=== PATIENT | male | born 1945 | race Caucasian/White ===

== ENCOUNTER 2022-11-26 12:01 | Inpatient (IN) ==
--- NOTE | 2022-11-03 15:58 | PAT Medication Instructions ---
Medication Instructions Date of Service November 03, 2022 Home Medications atorvastatin 40 mg tablet (Lipitor) 40 mg PO HS insulin human U-100 NPH-regulr 70-30 mix 100 unit/mL subcutaneous susp (Humulin 70/30 U-100 Insulin) 1 sliding scale dose subcut USEASDIRECTD losartan 25 mg tablet 25 mg PO QAM metformin 500 mg tablet,extended release 24 hr 500 mg PO BID metoprolol tartrate 25 mg tablet 25 mg PO BID nitroglycerin 0.4 mg sublingual tablet 0.4 mg sublingual UD omeprazole 20 mg capsule,delayed release 20 mg PO DAILY PRN finasteride 5 mg tablet 5 mg PO QAM multivitamin 1 tab PO QAM Continue as directed nitroglycerin 0.4 mg sublingual tablet 0.4 mg sublingual UD DO NOT take the morning of surgery losartan 25 mg tablet 25 mg PO QAM metformin 500 mg tablet,extended release 24 hr 500 mg PO BID multivitamin 1 tab PO QAM Take morning of surgery With a small sip of water, OTHERWISE NOTHING TO EAT OR DRINK AFTER MIDNIGHT: metoprolol tartrate 25 mg tablet 25 mg PO BID omeprazole 20 mg capsule,delayed release 20 mg PO DAILY PRN(if needed) finasteride 5 mg tablet 5 mg PO QAM Take evening before surgery atorvastatin 40 mg tablet (Lipitor) 40 mg PO HS metformin 500 mg tablet,extended release 24 hr 500 mg PO BID metoprolol tartrate 25 mg tablet 25 mg PO BID Insulin Dependent Diabetic Patients * Test your blood sugar the morning of surgery * If Blood Sugar is GREATER THAN 150, take HALF of your regular dose of: insulin human U-100 NPH-regulr 70-30 mix 100 unit/mL subcutaneous susp (Humulin 70/30 U-100 Insulin) 1 sliding scale dose subcut USEASDIRECTD. * If Blood Sugar is LESS THAN 150, DO NOT TAKE ANY: insulin human U-100 NPH- regulr 70-30 mix 100 unit/mL subcutaneous susp (Humulin 70/30 U-100 Insulin) 1 sliding scale dose subcut USEASDIRECTD. Other Notes If you have any questions please call us at [phone] or [phone] or [phone] or [phone]
--- NOTE | 2022-11-07 08:44 | Anesthesiology Consultation ---
Date of Service November 07, 2022 Assessment & Plan (1) Encounter for pre-operative examination: - COVID screening: Per assessment on 11/07: No known COVID-19 positive contacts or current COVID-19 related symptoms. Travel screen negative. Patient vaccinated. At surgeon discretion if preop Covid testing being done. - Check BSG AM DOS - Patient acceptable risk for surgery pending surgeon-ordered cardiology preop evaluation (S, appt 11/12). Chart Review Chart Review: Patient seen in Pre Admission Testing Teaching & Discussion Pre-Anesthesia Teaching/Discussion Notes: Instructed NPO after midnight before surgery,except medications with 15 cc of water. Medication instructions provided according to the PAT guidelines. History Surgery Operation Date: 11/26/22 07:45 Proposed Procedures p L5-S1 Decompression and Fusion, Spinal Cord Monitoring - Uche Porras DO Height/Weight Height: 5 ft 10.5 in Weight: 84.4 kg Allergies Allergy/AdvReac Type Severity Reaction Status Date / Time No Known Allergies Allergy U Verified 11/03/22 15:04 Medications Home Medications Medication Instructions Recorded Confirmed Last Taken atorvastatin 40 mg tablet (Lipitor) 40 mg PO HS 11/11/18 11/03/22 07/07/21 insulin human U-100 NPH-regulr 1 sliding scale dose subcut 07/08/21 11/03/22 07/08/21 70-30 mix 100 unit/mL subcutaneous USEASDIRECTD susp (Humulin 70/30 U-100 Insulin) losartan 25 mg tablet 25 mg PO QAM 07/08/21 11/03/22 07/08/21 metformin 500 mg tablet,extended 500 mg PO BID 07/08/21 11/03/22 07/08/21 release 24 hr metoprolol tartrate 25 mg tablet 25 mg PO BID 07/08/21 11/03/22 07/08/21 nitroglycerin 0.4 mg sublingual 0.4 mg sublingual UD 07/08/21 11/03/22 Unknown tablet omeprazole 20 mg capsule,delayed 20 mg PO DAILY PRN Acid Reflux 07/08/21 11/03/22 07/08/21 release finasteride 5 mg tablet 5 mg PO QAM 11/03/22 11/03/22 Unknown multivitamin 1 tab PO QAM 11/03/22 11/03/22 Unknown Past Medical History Medical History (Updated 11/07/22 @ 08:44 by Carmen Castle) Arthritis BPH (benign prostatic hyperplasia) CAD (coronary artery disease) CABG x3 (2018) Diabetes mellitus, type 2 Dyslipidemia GERD (gastroesophageal reflux disease) HTN (hypertension) Mild aortic stenosis JOAN 1.3cm2. MG 12.3mmhg per 12/2021 echo Peripheral neuropathy Exercise / Class Metabolic Activity III < 4 Walking/Shop/Light housework Past Family History Family History Mother CHF (congestive heart failure) Other No family history of adverse response to anesthesia Past Surgical History Surgical History History of cardiac cath 2018 > no stents History of colonoscopy History of coronary artery bypass graft CABG x3 (2018) History of ERCP History of repair of rotator cuff Left + biceps tendon repair Hx of cholecystectomy [place] teeth removed Past Anesthesia History No Hx of Anesthesia Complications and No Family Hx of Anesthesia Complications History of PONV No Hx of PONV and No Hx of Motion Sickness Social History Smoking Status: Never smoker Do You Dip or Chew Tobacco: No (Quit 30+ years ago) Hx Alcohol Use: Yes Alcohol type: beer alcohol intake frequency: a few times a week substance use type: does not use Review of Systems Patient denies chest pain, shortness of breath, dyspnea on exertion, fever, chills, cough, wheezing, palpitations. Physical Exam Vital Signs VITALS BP 99/66 (per pt, chronic low-normal BP readings. Pt will be seeing cardio for preop evaluation prior to surgery) P 67 TEMP 97.7 SP02 95%RA RESP 16 PHYSICAL Full cervical extension range of motion. Full TMJ range of motion. TMD 3 finger breaths Mallampati Score 3 Dentition: intact, several caps/crown Lungs: clear throughout to auscultation Cardiac: regular rate and rhythm, faint systolic murmur Spine: normal Carotid arteries: negative bruit Extremities: no edema Lab Results Anesthesia Preop Results Results Anesthesia Widget: WBC 8.94 K/ul (4.8-10.8) 11/07/22 Hgb 17.1 g/dl (14.0-18.0) 11/07/22 Hct 50.2 % (40.1-51.0) 11/07/22 Plt 148 K/uL (130-400) 11/07/22 Na 137 mmol/L (136-145) 11/07/22 K 3.8 mmol/L (3.5-5.1) 11/07/22 Cl 103 mmol/L (98-107) 11/07/22 CO2 22 mmol/L (21-32) 11/07/22 BUN 21 mg/dl (6-23) 11/07/22 Creat 1.04 mg/dl (0.6-1.4) 11/07/22 Glucose Level 217 mg/dl (70-99(Fasting)) H 11/07/22 PT 12.4 Seconds (9.0-12.0) H 11/07/22 PTT 28.8 Seconds (21.0-31.0) 11/07/22 INR 1.2 (0.9-1.1) H 11/07/22 HA1c 6.9 % (4.5-5.6) H 11/07/22 Urine Color Yellow 11/07/22 Urine Appearance Clear (Clear) 11/07/22 Urine pH 6.0 (4.5-7.5) 11/07/22 Urine Specific [place] 1.015 (1.000-1.030) 11/07/22 Urine Protein 2+ (Negative) H 11/07/22 Urine Glucose (UA) Negative (Negative) 11/07/22 Urine Ketones Negative (Negative) 11/07/22 Urine Blood Negative (Negative) 11/07/22 Urine Nitrite Negative (Negative) 11/07/22 Urine Bilirubin Negative (Negative) 11/07/22 Urine Urobilinogen Negative (Negative) 11/07/22 Urine Leukocyte Esterase Negative (Negative) 11/07/22 Urine WBC (Auto) 1-5 /hpf (0-5) 11/07/22 Urine RBC (Auto) 5-10 /hpf (0-4) H 11/07/22 Urine Hyaline Casts (Auto) 1-5 /lpf (0-5) 11/07/22 Urine Epithelial Cells (Auto) 5-10 /lpf (0-5) H 11/07/22 Urine Bacteria (Auto) Negative (Negative) 11/07/22 Blood Type O Negative 11/07/22 Antibody Screen NEGATIVE 11/07/22 Testing Electrocardiogram Date: 01/23/22 Normal sinus rhythm at 77 bpm. RBBB. LAFB. Bifascicular block. LVH with secondary repolarization abnormality. Anterior septal infarct (cited on or before 11/07/2019). Bifascicular block chronicnoted on 07/08/2021 EKG. Echo done 12/2021. Chest X-Ray Date: 11/07/22 FINDINGS: Cardiac mediastinal and hilar silhouettes are unchanged. Prior median sternotomy with suggested CABG. No pneumothorax, pleural effusion, airspace consolidation or overt pulmonary edema. Degenerative changes of the shoulders and spine. Cholecystectomy. Chronic L1 compression deformity. Smoothly corticated ossification projects over the mid left scapula. IMPRESSION: No acute process. Echocardiogram Date: 01/15/22 LVEF 56%. Left ventricular wall motion is normal. Moderately increased concentric LV wall thickness. Grade 1 diastolic dysfunction. Mild LAE. Mild aortic stenosis (JOAN 1.3cm2. MG 12.3mmhg). Mild mitral annular calcification. Compared to previous study 02/20/2021, aortic valve stenosis indices appear stable. Cardiac Catheterization Date: 11/12/18 Summary of Findings Severe multivessel CAD 50% distal Left main 99% subtotal mid LAD 60% ostial Lcx 70% mid-distal Lcx 80% distal Lcx 60% mid OM1 80% ostial RCA with vasospasm 70% distal RCA 90% ostial RPDA *Subsequent CABG performed* COVID-19 Risk Screen Screening Information COVID-19 Screen Date: 11/07/22 Exposure 21 Days Family/Household +COVID Last 21 Days: No Exposure 10 Days Any COVID Exposure Last 10 Days: No Symptoms Last 10 Days Experienced COVID Sx Last 10 Days: No + COVID 0-90 Days COVID + in Last 0-90 Days: No
[~2022-11-26 12:01] MED LIST: ACETAMINOPHEN 500 MG TAB PO SCH; CeleBREX 200 MG CAP PO SCH; GABAPENTIN 300 MG CAP PO SCH; LR 15ML/HR IV SCH; ceFAZolin 2000MG 2,000 MG/15 ML SYR IV SCH
[2022-11-26] MEDS ORDERED: PROPOFOL IV EMULSION 10 MG/ML 20 ML VIAL IV ONE (13:20)
[2022-11-26] MEDS ORDERED: DEXAMETHASONE SOD INJ 4 MG/ML VIAL ONE (13:20)
[2022-11-26] MEDS ORDERED: ROCURONIUM BROMIDE 10 MG/ML 5 ML VIAL IV ONE (13:20)
[2022-11-26] MEDS ORDERED: MIDAZOLAM HCL 1 MG/ML 2ML VIAL ONE (13:20)
[2022-11-26] MEDS ORDERED: ONDANSETRON INJ 2 MG/ML 2 ML VIAL ONE (13:20)
[2022-11-26] MEDS ORDERED: LIDOCAINE 2% MPF LOCAL 5 ML VIAL INFIL ONE (13:20)
[2022-11-26] MEDS ORDERED: fentaNYL citrate 100 MCG/2 ML VIAL ONE (13:21)
--- NOTE | 2022-11-26 13:35 | History & Physical Report ---
Date of Service November 26, 2022 Assessment & Plan (1) Neurogenic claudication due to lumbar spinal stenosis: Plan: L5-S1 decompression and fusion History of Present Illness Chief Complaint: Back and leg pain Primary Care Provider: Edwin Alfonso MD This is a 77-year-old male who presents with chronic persistent back and leg pain. Failed extensive course of nonoperative care is here for surgical intervention. Allergies Allergy/AdvReac Type Severity Reaction Status Date / Time No Known Allergies Allergy U Verified 11/03/22 15:04 Home Medications Medication Instructions Recorded Confirmed Type atorvastatin 40 mg tablet (Lipitor) 40 mg PO HS 11/11/18 11/26/22 History insulin human U-100 NPH-regulr 1 sliding scale dose subcut 07/08/21 11/26/22 History 70-30 mix 100 unit/mL subcutaneous USEASDIRECTD susp (Humulin 70/30 U-100 Insulin) losartan 25 mg tablet 25 mg PO QAM 07/08/21 11/26/22 History metformin 500 mg tablet,extended 500 mg PO BID 07/08/21 11/26/22 History release 24 hr metoprolol tartrate 25 mg tablet 25 mg PO BID 07/08/21 11/26/22 History nitroglycerin 0.4 mg sublingual 0.4 mg sublingual UD 07/08/21 11/03/22 History tablet omeprazole 20 mg capsule,delayed 20 mg PO DAILY PRN Acid Reflux 07/08/21 11/26/22 History release finasteride 5 mg tablet 5 mg PO QAM 11/03/22 11/26/22 History multivitamin 1 tab PO QAM 11/03/22 11/26/22 History Past Med/Surg History Medical History (Updated 11/26/22 @ 13:35 by Uche Porras DO) Arthritis BPH (benign prostatic hyperplasia) CAD (coronary artery disease) CABG x3 (2017) Diabetes mellitus, type 2 Dyslipidemia GERD (gastroesophageal reflux disease) HTN (hypertension) Mild aortic stenosis JOAN 1.3cm2. MG 12.3mmhg per 12/2021 echo Peripheral neuropathy Surgical History History of cardiac cath 2018 > no stents History of colonoscopy History of coronary artery bypass graft CABG x3 (2018) History of ERCP History of repair of rotator cuff Left + biceps tendon repair Hx of cholecystectomy [place] teeth removed Family History Mother CHF (congestive heart failure) Other No family history of adverse response to anesthesia Social History Smoking Status: Never smoker Second Hand Exposure: Yes (IN THE PAST); Do You Dip or Chew Tobacco: No (Quit 30+ years ago); Hx Alcohol Use: Yes Alcohol type: beer Preferred Language: Dutch Communication Ability: Effective [employer] Department Supervisor Required: No Beliefs That Will Affect Care: None Current Living Situation: Alone Feels Safe at Home: Yes Safety Concerns: Feels Safe At This Time Assistive Devices: Brace/Splint/Immobilizer and Glasses Physical Exam Physical Exam: Patient is alert and oriented Heart regular rhythm Lungs clear Results & Data Results & Data ([facility]) Vital Signs (Past 12 Hours) Vital Signs Temp Pulse Resp BP Pulse Ox O2 Del Method 11/26/22 12:25 36.7 C 54 L 20 178/88 H 94 Room Air
--- NOTE | 2022-11-26 13:35 | History & Physical Bridge Note ---
Date of Service November 26, 2022 History & Physical Bridge Note I have examined the patient, reviewed the History & Physical and in the interval since the performance of the History & Physical I have noted the following changes of clinical significance: no changes noted
[2022-11-26] MEDS ORDERED: ceFAZolin 330 MG/ML 1 GM VIAL ONE (13:51)
[2022-11-26] MEDS ORDERED: BUPIVACAINE/EPINEPHRINE 0.25% 1:200,000 30 ML VIAL ONE (13:51)
[2022-11-26] MEDS ORDERED: ePHEDrine sulfate 50 MG/ML AMP IV PRN (14:01)
[2022-11-26] MEDS ORDERED: ATROPINE SULFATE 0.1 MG/ML 10ML SYR IV PRN (14:01)
[2022-11-26] MEDS ORDERED: fentaNYL citrate 100 MCG/2 ML VIAL IV PRN (14:01)
[2022-11-26] MEDS ORDERED: ONDANSETRON INJ 2 MG/ML 2 ML VIAL IV PRN ×2 (14:01→18:22)
[2022-11-26] MEDS ORDERED: PROMETHAZINE HCL 6.25 MG in SODIUM CHLORIDE 0.9% 50 ML IV PRN (14:01)
[2022-11-26] MEDS ORDERED: FLOSEAL HEMOSTATIC MATRIX 10ML TOP ONE (14:44)
[2022-11-26] MEDS ORDERED: SUGAMMADEX SODIUM 200 MG/2 ML VIAL IV ONE (15:24)
--- NOTE | 2022-11-26 16:12 | Operative Report ---
Post Operative Report Pre & Post Diagnosis Operation Date: 11/26/22 07:00 Pre-Op Diagnosis: Spinal Stenosis, Lumbar Region with Neurogenic Claudication Extraforaminal disc herniation L5-S1 on the right Post-Op Diagnosis: Same I identified the patient and participated in the time-out.: Yes Procedure Operation Date: 11/26/22 07:00 Actual Procedures #1 lumbar decompression bilateral facetectomies and foraminotomies L4-L5 L5-S1. #2 posterior spinal fusion L5-S1. #3 placement posterior instrumentation L5-S1. #4 interbody fusion L5-S1. #5 placement of Spira 14 x 26 mm L5-S1. #6 placement locally harvested morselized autograft in the posterior gutters. #7 placement of I factor combined with V toss interbody space and posterior gutters. Surgeon Uche Porras, DO Business Project Analyst Mariza Chance Estimated Blood Loss 300 Findings Consistent with Post-Op Diagnosis Specimens None Indications This is a 77-year-old male who presents with above-mentioned diagnosis and failing since course of nonoperative care is here for surgical invention. Description of Procedure Patient was met with identified informed consent obtained. Patient was then taken to the operative suite underwent a patient placed in a prone position on the Caio table on top Edison frame. All bony prominences well-padded eyes inspected to ensure no external pressure placed upon the. This point the lumbar spine was prepped and draped in normal sterile fashion. Sharp dissection with the assistance of Bovie cautery was performed down to and exposing the lamina and transverse processes of L5 and the sacral ala bilaterally. From a caudal to cephalad fashion complete laminectomy L5 partial laminectomy of L4 was performed including bilateral medial facetectomies and foraminotomies addressing severe spinal stenosis. I did perform a complete facetectomy of L5-S1 on the right to adequately decompress the foraminal extraforaminal disc herniation that was identified and removed. Pedicle screws then placed in L5 and S1 levels bilaterally with assistance of fluoroscopy and properly sized delmis placed. By way of a transit foraminal approach and right complete discectomy performed endplates curetted to subcortical bleeding bone and a 14 x 26 mm Spira cage filled I factor tapped in position. The rods were then locked into final position bilaterally. The transverse processes of L5 and the sacral ala burred to subcortical bleeding bone. I factor model V toss and locally harvested morselized autograft was placed in the posterior gutters. 15 round KAREN drain inserted. The incision was then closed with 1 Vicryl the fascia 2-0 Vicryl subcutaneously and 4 Monocryl for final skin closure. Steri-Strips dressings placed. Patient waken taken to PACU stable condition. Please note spinal cord monitoring was utilized at the procedure no changes noted. I attest to the content of the Intraoperative Record and any orders documented therein. Any exceptions are noted below.
--- NOTE | 2022-11-26 16:20 | Fluoroscopy Report ---
FL lumbar spine 2-3V HISTORY: 77 years-old Male L5-S1 DECOMP/FUSION COMPARISON: Lumbar spine MRI 01/26/2014 TECHNIQUE: 2 spot fluoroscopic images of the lumbar spine were obtained utilizing 20.9 seconds fluoro scopy time FINDINGS: Discectomy with posterior interbody delmis and screw fusion hardware at L5-S1. The hardware appears inta ct. Spondylitic spurring with intervertebral disc space narrowing. No unexpected foreign body identif ied. IMPRESSION: Fluoroscopic assistance as above. ACT 112: Negative or not required by law. The above report was generated using voice recognition software. It may contain grammatical, syntax o r spelling errors. Electronically signed by: Frandy Mcmanus M.D. 11/26/2022 4:19 PM
--- NOTE | 2022-11-26 17:11 | Cardiology Consultation ---
Date of Consultation November 26, 2022 Assessment & Plan (1) Heart block AV second degree: (2) Bifascicular block: (3) CAD (coronary artery disease), [place] coronary artery: (4) S/P CABG x 3: Plan 77-year-old patient presents for elective spinal surgery. Transient bradycardia with 2-1 AV block recorded during induction. Currently sinus rhythm with bifascicular block per ECG. Recommend atropine to bedside. Transcutaneous pacer pads in place. Hold beta-stefania therapy. Continue telemetry monitoring during hospitalization. Consideration for electrophysiology consultation pending clinical course and review of telemetry monitoring. History of Present Illness Reason for Consultation: Bradycardia, 2-1 AV block Requesting Physician: Dr.. Tate Geronimo Attending Physician: Uche Porras DO History of Present Illness 77-year-old patient seen and examined at the bedside in PACU. Spinal surgery performed earlier today. I was contacted by the anesthesiologist regarding bradycardia. During induction, patient became bradycardic with transient 2-1 AV block. He was treated with Robinul, and ephedrine. Bradycardia occurred during induction as well as early on during his operation. When coming out of anesthesia he experienced second episode of bradycardia. Rhythm strips available demonstrate transient 2-1 AV block. There are no rhythm strips available postoperatively. Currently he is sinus rhythm on telemetry. Repeat ECG demonstrating sinus rhythm, right bundle branch block, left anterior fascicular block. No changes when compared to prior ECG in the [facility] record dated 11/12/2022. Cardiovascular history includes multivessel coronary artery disease status post coronary artery bypass grafting x3 (11/17/18) with GARBER-LAD, SVG-OM, SVG-PDA and EVH, dyslipidemia, mild aortic valve stenosis, moderate right sided carotid vascular disease, and HTN. Patient resting comfortably in PACU. Denies lightheadedness, dizziness, or chest discomfort. Notes mild dyspnea on exertion over the past few weeks. No orthopnea, PND, or lower extremity edema. Denies syncope or near syncope. Allergies Allergy/AdvReac Type Severity Reaction Status Date / Time No Known Allergies Allergy U Verified 11/03/22 15:04 Home Medications Medication Instructions Recorded Confirmed Type atorvastatin 40 mg tablet (Lipitor) 40 mg PO HS 11/11/18 11/26/22 History insulin human U-100 NPH-regulr 1 sliding scale dose subcut 07/08/21 11/26/22 History 70-30 mix 100 unit/mL subcutaneous USEASDIRECTD susp (Humulin 70/30 U-100 Insulin) losartan 25 mg tablet 25 mg PO QAM 07/08/21 11/26/22 History metformin 500 mg tablet,extended 500 mg PO BID 07/08/21 11/26/22 History release 24 hr metoprolol tartrate 25 mg tablet 25 mg PO BID 07/08/21 11/26/22 History nitroglycerin 0.4 mg sublingual 0.4 mg sublingual UD 07/08/21 11/03/22 History tablet omeprazole 20 mg capsule,delayed 20 mg PO DAILY PRN Acid Reflux 07/08/21 11/26/22 History release finasteride 5 mg tablet 5 mg PO QAM 11/03/22 11/26/22 History multivitamin 1 tab PO QAM 11/03/22 11/26/22 History Patient History Medical History Arthritis BPH (benign prostatic hyperplasia) CAD (coronary artery disease) CABG x3 (2018) Diabetes mellitus, type 2 Dyslipidemia GERD (gastroesophageal reflux disease) HTN (hypertension) Mild aortic stenosis JOAN 1.3cm2. MG 12.3mmhg per 12/2021 echo Peripheral neuropathy Surgical History History of cardiac cath 2018 > no stents History of colonoscopy History of coronary artery bypass graft CABG x3 (2018) History of ERCP History of repair of rotator cuff Left + biceps tendon repair Hx of cholecystectomy [place] teeth removed Family History Mother CHF (congestive heart failure) Other No family history of adverse response to anesthesia Social History Smoking Status: Never smoker Second Hand Exposure: Yes (IN THE PAST); Do You Dip or Chew Tobacco: No (Quit 30+ years ago); Hx Alcohol Use: Yes Alcohol type: beer Hx Substance Use: No Preferred Language: Lao Communication Ability: Effective Personal Consultant Required: No Beliefs That Will Affect Care: None Current Living Situation: Alone Other Information That Helps Us Care for You: No Feels Safe at Home: Yes Safety Concerns: Feels Safe At This Time Assistive Devices: Glasses Review of Systems Review of Systems: All systems reviewed & are unremarkable except as noted in Subjective Physical Exam Constitutional: well developed and well nourished; no acute distress Respiratory: + respiratory distress; no labored breathing and no retractions Auscultation: no crackles, no rales, no rhonchi and no wheezes Cardiovascular: Rate/Rhythm: regular rate and regular rhythm Heart Sounds: normal S1, normal S2 and + murmur (2/6 systolic ejection murmur heard best at the right second intercostal spa) Extremities: no edema Gastrointestinal (Abdomen): Inspection/Auscultation: normal bowel sounds; abdomen not distended Percussion/Palpation: abdomen soft; abdomen nontender, no guarding and abdomen not rigid Results & Data ([facility]) Vital Signs (Past 12 Hours) Vital Signs Temp Pulse Resp BP Pulse Ox O2 Del Method 11/26/22 12:25 36.7 C 54 L 20 178/88 H 94 Room Air Diagnostic Findings 2D echocardiogram report 01/15/2022: 2D echocardiogram report summary January 15, 2022: The left ventricular cavity size is normal. The LV wall thickness is moderately increased (concentric). The left ventricular wall motion is normal. Calculated LV ejection Fraction = 56% (bi-plane method of discs). The left ventricular diastolic function is mildly abnormal (grade I). The left atrium is mildly enlarged (35-41 ml/m^2). The aortic valve has three leaflets. The aortic valve is moderately calcified. The aortic valve opening is mildly reduced. Mild aortic valve stenosis is present. There is mild mitral annular calcification. The mitral valve leaflets are mildly calcified. Compared to previous study dated 02/20/2021, aortic valve stenosis indices appear stable.
--- NOTE | 2022-11-26 17:32 | Anesthesiology Progress Note ---
Date of Service November 26, 2022 Anesthesia Post Procedure Vital Signs Vital Signs: Temp Pulse Pulse Resp BP Pulse Ox O2 Del Method 11/26/22 17:20 61 14 136/62 96 Nasal Cannula 11/26/22 17:00 63 18 117/64 96 Oxymask 11/26/22 17:10 63 22 134/57 L 93 Nasal Cannula 11/26/22 16:50 72 22 141/69 H 95 Oxymask 11/26/22 16:40 60 17 108/90 94 Oxymask 11/26/22 16:33 36.1 C L 56 L 21 144/75 H 96 Oxymask 11/26/22 12:25 36.7 C 54 L 20 178/88 H 94 Room Air O2 Flow Rate 11/26/22 17:20 2 11/26/22 17:00 6 11/26/22 17:10 2 11/26/22 16:50 6 11/26/22 16:40 6 11/26/22 16:33 6 11/26/22 12:25 Pain Intensity Bilateral Back: Pain Intensity: 6 Transfer of Care Handoff Completed per policy Notes Mental Status: alert / awake / arousable and participated in evaluation Patient Amnestic to Procedure: Yes Nausea / Vomiting: adequately controlled Pain: adequately controlled Airway Patency, RR, SpO2: stable & adequate BP & HR: see Notes below Hydration State: stable & adequate Anesthetic Complications: see Notes below and Pt Satisfied with anesthetic care Notes: See attending anesthesiologist's note for full details. Patient doing well and plan to go to PCU for observation given the rhythm changes noted during procedure. Cardiology following patient and appreciate their excellent care of him.
[2022-11-26] MEDS ORDERED: DO NOT ADMINISTER PNEUMOCOCCAL VACCINE PRN (18:22)
[2022-11-26] MEDS ORDERED: bisacodyL 10 MG SUPP PR PRN (18:22)
[2022-11-26] MEDS ORDERED: METOCLOPRAMIDE HCL INJ 5 MG/ML 2 ML VIAL IV PRN (18:22)
[2022-11-26] MEDS ORDERED: diphenhydrAMINE Capsule 25 MG CAP PO PRN (18:22)
[2022-11-26] MEDS ORDERED: traMADol HCL 50 MG TABLET PO PRN (18:22)
[2022-11-26] MEDS ORDERED: PHARMACY GLYCEMIC MGMT CONSULT PRN (18:22)
[2022-11-26] MEDS ORDERED: NALOXONE HCL 0.4 MG/1 ML VIAL/CARP IV PRN (18:22)
[2022-11-26] MEDS ORDERED: FAMOTIDINE 20 MG TAB PO PRN (18:22)
[2022-11-26] MEDS ORDERED: LORazepam 0.5 MG TAB PO PRN (18:22)
[2022-11-26] MEDS ORDERED: DO NOT ADMINISTER FLU VACCINE PRN (18:22)
[2022-11-26] MEDS ORDERED: HYDROmorphone INJ 0.5 MG/0.5 ML SYR IV PRN (18:22)
[2022-11-26] MEDS ORDERED: hydrOXYzine HCl 25 MG TAB PO PRN (18:22)
[2022-11-26] MEDS ORDERED: LORazepam 2 MG/1 ML VIAL IV PRN (18:22)
[2022-11-26] MEDS ORDERED: ALUMINUM/MAGNESIUM SUSP 30 ML UDC PO PRN (18:22)
[2022-11-26] MEDS ORDERED: PROMETHAZINE HCL 12.5 MG in SODIUM CHLORIDE 0.9% 50 ML IV PRN (18:22)
[2022-11-26] MEDS ORDERED: HYDROmorphone INJ 1 MG/ML SYRINGE IV PRN (18:22)
[2022-11-26] MEDS ORDERED: MAGNESIUM HYDROXIDE SUSP 30 ML UDC PO PRN (18:22)
[2022-11-26] MEDS ORDERED: ONDANSETRON 4 MG OD TAB PO PRN (18:22)
[2022-11-26] MEDS ORDERED: NITROGLYCERIN SL 0.4 MG/TAB TAB SL SCH (18:22)
[2022-11-26] MEDS ORDERED: SOD PHOSPHATE/SOD BIPHOSPHATE ENEMA 132 ML BTL PR PRN (18:22)
[2022-11-26] MEDS ORDERED: PANTOprazole 40 MG TAB PO PRN (18:40)
[2022-11-26 19:42] LABS: BUN Creatinine Ratio 18.8 (10-20); Calcium 8.4 mg/dl (8.5-10.1); Creatinine Clr Calc Pharmacy 57.9 ml/min; Est GFR (African American) 73.6 ml/min; Est GFR (Non-African American) 63.5 ml/min; Potassium 3.9 mmol/L (3.5-5.1)
[2022-11-26] MEDS ORDERED: DEXTROSE 50% 50 ML SYRINGE IV PRN (19:45)
[2022-11-26] MEDS ORDERED: GLUCAGON FOR INJ 1 MG VIAL IM PRN (19:45)
[2022-11-26] MEDS ORDERED: GLUCOSE 40% GEL 15 GM TUBE PO PRN (19:45)
[2022-11-26] MEDS ORDERED: CARBOHYDRATES FOR HYPOGLYCEMIA PO PRN (19:45)
[2022-11-26] MEDS ORDERED: GLUCOSE 10 TAB/TUBE PO PRN (19:45)
[2022-11-26] MEDS: SODIUM CHLORIDE 0.9% 1000ML 1,000 ML IV SCH (19:48)
[2022-11-26] MEDS: ACETAMINOPHEN 1,000 MG/100 ML VIAL IV PRN (20:00)
[2022-11-26] MEDS ORDERED: LANTUS PER UNIT CHARGE SQ ONE (21:00)
[2022-11-26] MEDS: INSULIN ASPART PER UNIT SC SCH (21:26)
[2022-11-26] MEDS: DOCUSATE SODIUM/SENNA 50/8.6MG TAB PO SCH (21:28)
[2022-11-26] MEDS: ATORVASTATIN 40 MG TAB PO SCH (21:29)
--- NOTE | 2022-11-26 22:24 | Consultation Report ---
DATE OF ADMISSION: 11/26/2022. CHIEF COMPLAINT: Status post back surgery, transient bradycardia, 2:1 AV block recorded during induction. HISTORY OF PRESENT ILLNESS: This is a 77-year-old male with past medical history significant for type 2 diabetes, hyperlipidemia, CAD status post CABG, hypertension, history of hypomagnesemia, hypercalcemia, history of bilateral mild carotid artery stenosis, fatty liver, GERD, Peyronie's disease, BPH, history of seborrheic dermatitis. The patient is status post spine surgery. The patient had transient bradycardia with 2:1 AV block recorded during induction. EKG is showing bifascicular block. Seen by cardiology, recommended atropine at bedside , pacer pads placed, and to hold beta stefania. Currently, the patient is resting comfortably, hemodynamically stable. Heart rate in the 70s, as per nursing staff sometimes it is going to 40s. The patient denies any lightheadedness. No blurred visions, no earache, no runny nose. Has some sore throat from the ET tube, mild cough. Not feeling hot or cold. Denies any chest pain or shortness of breath, no nausea, no abdominal pain. Did not micturate yet. Able to move his lower extremities. ALLERGIES: No known drug allergies. PAST MEDICAL HISTORY: As mentioned above. PAST SURGICAL HISTORY: CABG, left shoulder arthroscopy, colonoscopy, lumbosacral spine shot. MEDICATIONS: The patient is on atorvastatin 40 mg p.o. at bedtime, finasteride 5 mg p.o. a.m., insulin 70/30 sliding scale, losartan 25 mg p.o. a.m., metformin 500 mg p.o. b.i.d., metoprolol tartrate 25 mg p.o. b.i.d., multivitamin 1 tablet p.o. daily, nitroglycerin 0.4 mg sublingual p.r.n., omeprazole 20 mg p.o. daily p.r.n. FAMILY HISTORY: Significant for father had stomach cancer; maternal grandmother has diabetes; mother has hypertension, heart failure later in life. SOCIAL HISTORY: . He has history of chewing tobacco. Alcohol, 8 cans of beers on weekends as per Epic. No drug use. REVIEW OF SYSTEMS: As per HPI. Rest of the review of systems is negative. PHYSICAL EXAMINATION: GENERAL: The patient is of moderate build, not in acute distress. VITAL SIGNS: Temperature 36.4, pulse 74, respiratory rate 17, blood pressure 137/98, oxygen 97% on 2 liters. HEENT: Extraocular movements are intact. No facial droop. NECK: No obvious neck masses or JVD. CARDIOVASCULAR: S1 and S2 heard. Regular rate and rhythm. No murmur, no gallop. RESPIRATORY SYSTEM: Normal AP diameter. No accessory muscle use. No wheezing, no crackles. ABDOMEN: Soft, bowel sounds present, nontender, no distention. CENTRAL NERVOUS SYSTEM: Alert and oriented. Speech is clear. No facial droop. Insight is okay. Obeys simple commands. Moves extremities. EXTREMITIES: No edema or erythema seen. LABORATORY DATA: Sodium 138, potassium 3.9, chloride 102, CO2 of 28, BUN 21, creatinine 1.1, serum glucose 180. TSH 1.013. SARS-CoV-2 rapid test negative. EKG: Showing normal sinus rhythm, rate of 69, right bundle branch block, left anterior fascicular block, bifascicular block, left ventricular hypertrophy, with repolarization abnormality, QTc of 535. ASSESSMENT AND PLAN: This is a 77-year-old male who presents status post sacral spinal surgery. The patient has had bradycardia with 2:1 AV conduction block, transient during induction. 1. Status post back surgery: Currently seems okay, hemodynamically stable. Further management as per orthopedics. 2. Bradycardia, 2:1 AV block, seemed to be recorded during induction. Seen by cardiology. Holding the beta stefania therapy and closely monitor in tele floor. Currently, hemodynamically stable. 3. History of coronary artery disease status post coronary artery bypass grafting: Aspirin has been held today,to restart as soon as possible ,possibly in the a.m. Holding beta stefania secondary to bradycardia. The patient is on statin. 4. Diabetes: Insulin sliding scale. Follow the blood sugars. 5. Hyperlipidemia: On statin. 6. Hypertension: Holding beta stefania .Losartan, withholding parameters.Will Monitor. DISPOSITION: As per orthopedics. Closely monitor in the tele floor. Job ID: [id number] [facility]
[2022-11-26] MEDS: ceFAZolin 2000MG 2,000 MG/15 ML SYR IV SCH (23:19)
[2022-11-27] MEDS ORDERED: INSULIN ASPART PER UNIT SC SCH (02:00)
[2022-11-27] MEDS ORDERED: COUGH DROP (SUGAR FREE) LOZ 24 LOZ/1 BOX BUCCAL ONE (02:05)
[2022-11-27] MEDS: ceFAZolin 2000MG 2,000 MG/15 ML SYR IV SCH (05:23)
[2022-11-27] MEDS: SODIUM CHLORIDE 0.9% 1000ML 1,000 ML IV SCH ×2 (05:23→18:03)
[2022-11-27] MEDS: POLYETHYLENE (MIRALAX) 17 GM PACK PO SCH ×3 (05:24→17:59)
[2022-11-27 06:28] LABS: Basophils # (auto) 0.04 K/uL (0-0.2); Basophils % (auto) 0.3 %; Eosinophils # (auto) 0.01 K/uL (0-0.50); Eosinophils % (auto) 0.1 %; Hematocrit (blood only) 38.9 % (40.1-51.0); Hemoglobin 13.7 g/dl (14.0-18.0); Immature Granulocytes # (auto) 0.08 K/uL (0.00-0.02); Immature Granulocytes % (auto) 0.7 %; Lymphocytes # (auto) 0.66 K/uL (1.2-3.4); Lymphocytes % (auto) 5.7 %; Mean Corpuscular Hemoglobin 31.1 pg (25.0-34.0); Mean Corpuscular Hgb Conc 35.2 g/dL (32.0-36.0); Mean Corpuscular Volume 88.2 fL (80.0-100.0); Mean Platelet Volume 12.7 fL (9.4-12.4); Monocytes # (auto) 0.66 K/uL (0.24-0.82); Monocytes % (auto) 5.7 %; Neutrophils # (auto) 10.23 K/uL (1.4-6.5); Neutrophils % (auto) 87.5 %; Platelet Count 130 K/uL (130-400); RDW Coefficient of Variation 13.4 % (11.5-14.5); RDW Standard Deviation 43.8 fL (36.4-46.3); Red Blood Count 4.41 M/uL (4.63-6.08); White Blood Count 11.68 K/ul (4.8-10.8)
[2022-11-27 06:55] LABS: BUN Creatinine Ratio 20.4 (10-20); Creatinine Clr Calc Pharmacy 57.4 ml/min; Est GFR (African American) 72.8 ml/min; Est GFR (Non-African American) 62.8 ml/min; Potassium 4.4 mmol/L (3.5-5.1)
--- NOTE | 2022-11-27 08:30 | Orthopedic Progress Note ---
Date of Service November 27, 2022 Assessment & Plan (1) Neurogenic claudication due to lumbar spinal stenosis: Plan: At this time once he is cleared with cardiology I would like him to begin physical therapy and ambulate as tolerated. Hopefully the set for discharge in the next few days. Admission and Anticipated Discharge Date Admission Date: November 26, 2022 Subjective Back pain controlled leg pain improved. He denies any shortness of breath or chest pain. Physical Exam Physical Exam: On exam is alert and oriented. Is cooperative with exam. Excellent strength testing. Results & Data ([facility]) Vital Signs (Past 12 Hours) Vital Signs Temp Pulse Pulse Resp BP Pulse Ox O2 Del Method 11/27/22 07:20 36.4 C L 82 16 106/76 92 Room Air 11/26/22 22:00 79 11/27/22 01:52 36.6 C 89 17 117/69 92 Room Air 11/26/22 22:39 36.5 C 86 16 104/58 L 91 Room Air 11/26/22 21:21 36.6 C 90 16 125/74 93 Room Air
[2022-11-27] MEDS: INSULIN ASPART PER UNIT SC SCH ×4 (09:05→21:25)
[2022-11-27] MEDS: LANTUS PER UNIT CHARGE SQ SCH ×2 (09:06→21:26)
[2022-11-27] MEDS: ACETAMINOPHEN 1,000 MG/100 ML VIAL IV PRN (09:08)
[2022-11-27] MEDS: dexAMETHasone 6 MG in SYRINGE 0 ML IV SCH (09:09)
[2022-11-27] MEDS: LOSARTAN POTASSIUM 25 MG TAB PO SCH (09:09)
[2022-11-27] MEDS: FINASTERIDE 5 MG TAB PO SCH (09:09)
[2022-11-27] MEDS: MULTIVITAMIN TAB PO SCH (09:09)
--- NOTE | 2022-11-27 10:46 | Cardiology Progress Note ---
Date of Service November 27, 2022 Assessment & Plan (1) Heart block AV second degree: (2) Bifascicular block: (3) CAD (coronary artery disease), [place] coronary artery: (4) S/P CABG x 3: Plan 77-year-old patient POD #1 L5-S1 fusion. Recurrent 2-1 AV block recorded overnight as well as while awake this morning. Beta-stefania on hold. Case discussed with electrophysiology. Patient will need pacemaker implantation. We will keep n.p.o. for the time being pending EP assessment. Continue telemetry monitoring. Admission and Anticipated Discharge Date Admission Date: November 26, 2022 Subjective Patient seen examined the bedside. Intermittent 2-1 AV block recorded overnight. Feeling well from a cardiovascular perspective this morning. Denies any symptoms currently. Ports 1-2 episodes of lightheadedness and flushing at home over the past 3-4 weeks. Denies chest pain or unusual shortness of breath. Review of Systems Review of Systems: All systems reviewed & are unremarkable except as noted in Subjective Physical Exam Constitutional: well developed and well nourished; no acute distress Respiratory: + respiratory distress; no labored breathing and no retractions Auscultation: no crackles, no rales, no rhonchi and no wheezes Cardiovascular: Rate/Rhythm: regular rate and regular rhythm Heart Sounds: normal S1, normal S2 and + murmur (2/6 systolic ejection murmur heard best at the right second intercostal spa) Extremities: no edema Gastrointestinal (Abdomen): Inspection/Auscultation: normal bowel sounds; abdomen not distended Percussion/Palpation: abdomen soft; abdomen nontender, no guarding and abdomen not rigid Results & Data ([facility]) Vital Signs (Past 12 Hours) Vital Signs Temp Pulse Pulse Resp BP Pulse Ox O2 Del Method 11/27/22 09:00 74 Room Air 11/27/22 07:00 83 11/27/22 07:20 36.4 C L 82 16 106/76 92 Room Air 11/27/22 01:52 36.6 C 89 17 117/69 92 Room Air
--- NOTE | 2022-11-27 12:01 | Pharmacy Report ---
Pharmacy Glycemic Short Note 2 - Date of Service November 27, 2022 - Glycemic Short BSG Results (Last 24 hours): 11/26/22 11/26/22 11/26/22 12:29 16:35 18:41 Glucose 188 H POC Glucose 165 H 155 H 11/26/22 11/27/22 11/27/22 20:18 01:54 05:55 Glucose 218 H POC Glucose 183 H 234 H 11/27/22 11/27/22 07:35 11:35 Glucose POC Glucose 200 H 185 H OUTPATIENT ANTIDIABETIC REGIMEN: * Humulin 70/30 25 units BIDM * metformin 500mg PO BID HbA1C: 6.9% (11/07/22) ASSESSMENT: * Patient is a 77 YOM POD #1 spinal fusion and history of DM2 receiving 6mg IV dexamethasone daily and now NPO for possible pacemaker placement. Pharmacy consulted to assist with glycemic management. * BSGs [phone]/dL the last 24h. Fasting elevated this AM to 200mg/dL. Patient received 15 units of basal yesterday and 6 units of bolus last night. * NPO and receiving steroids * Lantus 20 units this AM (severe stress). Will plan for an HS scale given continued NPO status. Novolog initiated as a moderate stress scale and will tighten. PLAN FOR INPATIENT GLYCEMIC CONTROL: * Hold outpatient oral diabetes medications * Basal insulin * Lantus 20 units qAM, HS scale * Bolus insulin * NovoLog per scale ACHS or Q6hrs while NPO * Goal Range: Low 110 mg/dL - High 140 mg/dL * Correction Factor: 21 mg/dL/unit * Nutritional / Prandial insulin per carb ratio of 1 unit per 8 grams CHO consumed
--- NOTE | 2022-11-27 12:03 | Hospitalist Progress Note ---
Date of Service November 27, 2022 Assessment & Plan (1) Neurogenic claudication due to lumbar spinal stenosis: Plan: Status post L5-S1 decompression and fusion on 11/26/2022 Management will be as per orthopedic surgeon Has minimal pain at the back but otherwise is stable (2) Heart block AV second degree: Plan: Noted to have second-degree AV block during the procedure Recurrence of the AV block as of yesterday Appreciate cardiology input and recommendation Will be evaluated by EP employee operations examiner and pacemaker placement as soon as possible (3) CAD (coronary artery disease), [place] coronary artery: Plan: History of CABG x3 No acute cardiac symptoms except bradycardia arrhythmia secondary to 2 is to 1 AV block (4) S/P CABG x 3: (5) Type 2 diabetes mellitus: Plan: SSI (6) HTN (hypertension): Plan: Blood pressure is controlled and will continue current medication except beta- stefania (7) Dyslipidemia: Plan: Continue statin DVT prophylaxis As per Ortho CODE STATUS Full Admission and Anticipated Discharge Date Admission Date: November 26, 2022 Subjective 11/27/2022 The patient was seen and examined in telemetry unit He has had episodes of 2-1 AV block yesterday without any symptoms He denies any symptoms as of today too Review of Systems Review of Systems: All systems reviewed and are unremarkable except as noted below Physical Exam Physical Exam: Lying in bed comfortably Constitutional: well developed, well nourished, + ill appearing and + obese Eyes: PERRL, conjunctivae normal, anicteric sclerae ENMT: external ear and nose normal, oropharynx normal Neck: trachea midline, no thyromegaly Respiratory: no respiratory distress Auscultation: lungs clear to auscultation bilaterally Cardiovascular: Rate/Rhythm: regular rate and regular rhythm; not tachycardic Heart Sounds: normal S1 and normal S2; no murmur Extremities: no edema Gastrointestinal (Abdomen): Inspection/Auscultation: normal bowel sounds; abdomen not distended Percussion/Palpation: abdomen soft; abdomen nontender Musculoskeletal: Complains to have some back pain but no other acute arthritis in any joint Neurologic: normal touch/pain/proprioception and moves all extremities; no f ocal motor deficits Psychiatric: A+Ox3, euthymic affect Lymphatic: no cervical or axillary lymphadenopathy Results & Data Results & Data ([facility]) Vital Signs (Past 12 Hours) Vital Signs Temp Pulse Pulse Resp BP Pulse Ox O2 Del Method 11/27/22 09:00 74 Room Air 11/27/22 07:00 83 11/27/22 07:20 36.4 C L 82 16 106/76 92 Room Air 11/27/22 01:52 36.6 C 89 17 117/69 92 Room Air Laboratory Results Short CBC 11/27/22 Range/Units 05:55 WBC 11.68 H (4.8-10.8) K/ul Hgb 13.7 L (14.0-18.0) g/dl Hct 38.9 L (40.1-51.0) % Plt Count 130 (130-400) K/uL BMP 11/26/22 11/27/22 18:41 05:55 Sodium 138 134 L Potassium 3.9 4.4 Chloride 102 101 Carbon Dioxide 28 24 BUN 21 23 Creatinine 1.12 1.13 Glucose 188 H 218 H Calcium 8.4 L 8.0 L Medications Administered Current Inpatient Medications Acetaminophen (Acetaminophen 500 Mg Tab) 1,000 mg PO Q8H PRN PRN Reason: MILD Pain Scale 1,2,3 & Pre PT Stop: 12/26/22 18:21 Al Hydrox/Mg Hydrox/Simethicone (Aluminum/Magnesium Susp 30 Ml Udc) 30 ml PO Q6H PRN PRN Reason: Dyspepsia Stop: 12/26/22 18:21 Atorvastatin Calcium (Atorvastatin 40 Mg Tab) 40 mg PO HS DEEPIKA Stop: 12/26/22 20:59 Last Admin: 11/26/22 21:29 Dose: 40 mg Bisacodyl (Bisacodyl 10 Mg Supp) 10 mg LA DAILY PRN PRN Reason: Constipation Stop: 12/26/22 18:21 Dextrose (Dextrose 50% 50 Ml Syringe) 25 - 50 ml IV UD PRN; Protocol PRN Reason: Hypoglycemia Protocol Stop: 12/26/22 19:44 Diphenhydramine HCl (Diphenhydramine Capsule 25 Mg Cap) 25 mg PO Q6H PRN PRN Reason: Allergic Rhinitis/Insomnia Stop: 12/26/22 18:21 Famotidine (Famotidine 20 Mg Tab) 20 mg PO Q12H PRN PRN Reason: Dyspepsia Stop: 12/26/22 18:21 Finasteride (Finasteride 5 Mg Tab) 5 mg PO QAM DEEPIKA Stop: 12/27/22 08:59 Last Admin: 11/27/22 09:09 Dose: 5 mg Glucagon (Glucagon For Inj 1 Mg Vial) 1 mg IM UD PRN; Protocol PRN Reason: Hypoglycemia Protocol Stop: 12/26/22 19:44 Glucose (Glucose 40% Gel 15 Gm Tube) 15 - 30 gm PO UD PRN; Protocol PRN Reason: Hypoglycemia Protocol Stop: 12/26/22 19:44 Glucose (Glucose 10 Tab/Tube) 4 - 8 tab PO UD PRN; Protocol PRN Reason: Hypoglycemia Protocol Stop: 12/26/22 19:44 Hydromorphone HCl (Hydromorphone Inj 0.5 Mg/0.5 Ml Syr) 0.5 mg IV Q3H PRN PRN Reason: MODERATE Pain (Scale 4,5,6) & Pre PT Stop: 12/10/22 18:21 Last Admin: 11/26/22 21:27 Dose: 0.5 mg Hydromorphone HCl (Hydromorphone Inj 1 Mg/Ml Syringe) 1 mg IV Q3H PRN PRN Reason: SEVERE Pain (Scale 7,8,9,10) Stop: 12/10/22 18:21 Hydroxyzine HCl (Hydroxyzine Hcl 25 Mg Tab) 25 mg PO Q8H PRN PRN Reason: Anxiety Stop: 12/26/22 18:21 Sodium Chloride (Nss 1000ml) 1,000 mls @ 100 mls/hr IV .Q10H [facility] Stop: 12/26/22 18:21 Last Admin: 11/27/22 05:23 Dose: 100 mls/hr Promethazine HCl 12.5 mg/ (Sodium Chloride) 50.5 mls @ 202 mls/hr IV Q6H PRN PRN Reason: Nausea &/or Vomiting Stop: 12/26/22 18:21 Acetaminophen (Ofirmev) 1,000 mg in 100 mls @ 400 mls/hr IV Q8H PRN PRN Reason: Pain Rating 1-3 & Pre PT Stop: 11/27/22 18:23 Last Infusion: 11/27/22 10:27 Dose: Infused Dexamethasone 6 mg/ Syringe 1.5 mls @ 1 mls/min IV DAILY [facility] Stop: 11/29/22 09:02 Last Admin: 11/27/22 09:09 Dose: 1 mls/min Influenza Virus Vaccine Quadrival (Do Not Administer Flu Vaccine) 1 each N/A PRN PRN PRN Reason: Notification Stop: 12/26/22 18:21 Insulin Aspart (Insulin Aspart Per Unit) 0 units SC [facility]; Protocol Stop: 12/26/22 20:59 Last Admin: 11/27/22 09:05 Dose: 3 units Insulin Glargine (Lantus Per Unit Charge) 20 units SQ DAILY [facility] Stop: 12/27/22 08:59 Last Admin: 11/27/22 09:06 Dose: 20 units Lorazepam (Lorazepam 0.5 Mg Tab) 0.5 mg PO Q8H PRN PRN Reason: Sedation/Anxiety Stop: 12/26/22 18:21 Lorazepam (Lorazepam 2 Mg/1 Ml Vial) 0.5 mg IV Q8H PRN PRN Reason: Sedation/Anxiety Stop: 12/26/22 18:21 Losartan Potassium (Losartan Potassium 25 Mg Tab) [facility] Stop: 12/27/22 08:59 Last Admin: 11/27/22 09:09 Dose: 25 mg Magnesium Hydroxide (Magnesium Hydroxide Susp 30 Ml Udc) 30 ml PO Q24H PRN PRN Reason: Constipation Stop: 12/26/22 18:21 Metoprolol Tartrate (Metoprolol Tartrate 25 Mg Tab) 25 mg PO BID [facility] Stop: 12/26/22 20:59 Miscellaneous (Carbohydrates For Hypoglycemia ) 15 - 30 gm PO UD PRN PRN Reason: Hypoglycemia Treatment Stop: 12/26/22 19:44 Miscellaneous Information (Pharmacy Glycemic Mgmt Consult) 1 each N/A UD PRN PRN Reason: Consult Stop: 12/26/22 18:21 Multivitamins (Multivitamin Tab) 1 tab [facility] Stop: 12/27/22 08:59 Last Admin: 11/27/22 09:09 Dose: 1 tab Naloxone HCl (Naloxone Hcl 0.4 Mg/1 Ml Vial/Carp) 0.1 mg IV Q5M PRN PRN Reason: Oversedation/Resp depression Stop: 12/26/22 18:21 Nitroglycerin (Nitroglycerin Sl 0.4 Mg/Tab Tab) 0.4 mg SL UD [facility] Stop: 12/26/22 18:21 Oxycodone HCl (Oxycodone Hcl Ir 5 Mg Tab (Immediate Release)) 5 - 10 mg PO Q4H PRN PRN Reason: Pain & Pre PT Stop: 12/10/22 18:21 Pantoprazole Sodium (Pantoprazole 40 Mg Tab) 40 mg PO DAILY PRN; Protocol PRN Reason: Acid Reflux Stop: 12/26/22 18:39 Pneumococcal Polyvalent Vaccine (Do Not Administer Pneumococcal Vaccine) 1 each N/A PRN PRN PRN Reason: Notification Stop: 12/26/22 18:21 Polyethylene Glycol (Polyethylene (Miralax) 17 Gm Pack) 17 gm PO Q6 [place]EE[place]KA Stop: 12/27/22 05:59 Last Admin: 11/27/22 05:24 Dose: Not Given Senna/Docusate Sodium (Docusate Sodium/Senna 50/8.6mg Tab) 2 tab PO HS DEE[place]KA Stop: 12/26/22 20:59 Last Admin: 11/26/22 21:28 Dose: 2 tab Sodium Biphosphate/Sodium Phosphate (Sod Phosphate/Sod Biphosphate Enema 132 Ml Btl) 132 ml LA ONE PRN PRN Reason: Constipation Stop: 12/26/22 18:21 Tramadol HCl (Tramadol Hcl 50 Mg Tablet) 50 - 100 mg PO Q4H PRN PRN Reason: Moderate-Severe pain & Pre PT Stop: 12/26/22 18:21
[2022-11-27] MEDS ORDERED: Nursing to Pharmacy Communication SCH ×2 (18:00→18:15)
[2022-11-27] MEDS: ACETAMINOPHEN 500 MG TAB PO PRN (21:23)
[2022-11-27] MEDS: ATORVASTATIN 40 MG TAB PO SCH (21:23)
[2022-11-27] MEDS: DOCUSATE SODIUM/SENNA 50/8.6MG TAB PO SCH (21:23)
--- NOTE | 2022-11-27 21:31 | Electrocardiogram Report ---
Test Reason : Blood Pressure : / mmHG Vent. Rate : 069 BPM Atrial Rate : 069 BPM P-R Int : 176 ms QRS Dur : 126 ms QT Int : 500 ms P-R-T Axes : 005 -56 119 degrees QTc Int : 535 ms Normal sinus rhythm Right bundle branch block Left anterior fascicular block Bifascicular block Left ventricular hypertrophy with repolarization abnormality Cannot rule out Septal infarct (cited on or before 26-NOV-2022) Abnormal ECG When compared with ECG of 08-JUL-2021 18:42, No significant change Confirmed by Devyn Cartagena ([id number]) on 11/27/2022 9:31:12 PM Referred By: Uche Porras Confirmed By:Devyn Cartagena
--- NOTE | 2022-11-28 05:10 | Electrocardiogram Report ---
Test Reason : Blood Pressure : / mmHG Vent. Rate : 082 BPM Atrial Rate : 082 BPM P-R Int : 178 ms QRS Dur : 120 ms QT Int : 430 ms P-R-T Axes : 007 -65 111 degrees QTc Int : 502 ms Normal sinus rhythm Right bundle branch block Left anterior fascicular block Bifascicular block Minimal voltage criteria for LVH, may be normal variant with repolarization abnormality Septal infarct (cited on or before 26-NOV-2022) Abnormal ECG When compared with ECG of 26-NOV-2022 16:36, No significant change Confirmed by Devyn Cartagena ([id number]) on 11/28/2022 5:10:27 AM Referred By: Uche Porras Confirmed By:Devyn Cartagena
[2022-11-28] MEDS ORDERED: VANCOMYCIN HCL 1000MG/20ML VIAL ONE (06:55)
[2022-11-28] MEDS ORDERED: WATER, STERILE FOR INJ 10 ML VIAL ONE (06:55)
[2022-11-28] MEDS ORDERED: BUPIVACAINE 0.25% 30 ML VIAL ONE (06:55)
[2022-11-28] MEDS ORDERED: LIDOCAINE 1% LOCAL 20 ML VIAL ONE (06:55)
[2022-11-28] MEDS ORDERED: fentaNYL citrate 100 MCG/2 ML VIAL ONE (07:06)
[2022-11-28] MEDS ORDERED: MIDAZOLAM HCL 5 MG/ML 1 ML VIAL ONE (07:06)
[2022-11-28] MEDS ORDERED: ceFAZolin 330 MG/ML 1 GM VIAL ONE (07:06)
--- NOTE | 2022-11-28 07:48 | History & Physical Bridge Note ---
Date of Service November 28, 2022 History & Physical Bridge Note I have examined the patient, reviewed the History & Physical and in the interval since the performance of the History & Physical I have noted the following changes of clinical significance: pt with 2:1 high degree AV block. I discussed the procedure and potential risks with the pt and he expressed an understanding and consents signed.
--- NOTE | 2022-11-28 07:48 | Pre Anesthesia Assessment ---
Date of Service November 28, 2022 Pre Sedation Assessment Vital Signs Temp Pulse Pulse Resp BP BP Pulse Ox 11/28/22 07:19 40 L 16 157/113 H 98 11/28/22 07:00 39 L 11/28/22 07:00 37 C 34 L 16 131/71 97 11/28/22 04:39 36.3 C L 40 L 18 130/64 96 11/27/22 23:54 59 L 11/27/22 23:20 38 L 154/60 H 11/27/22 23:08 36.5 C 74 18 116/77 96 11/27/22 20:10 66 150/69 H 11/27/22 19:37 37.0 C 81 20 123/70 98 11/27/22 17:00 36.9 C 121/77 94 11/27/22 12:42 36.5 C 71 16 117/71 95 11/27/22 09:00 74 O2 Del Method O2 Flow Rate 11/28/22 07:19 Room Air 11/28/22 07:00 11/28/22 07:00 Room Air 11/28/22 04:39 Room Air 11/27/22 23:54 11/27/22 23:20 11/27/22 23:08 Room Air 11/27/22 20:10 11/27/22 19:37 Room Air 11/27/22 17:00 Nasal Cannula 2 11/27/22 12:42 Room Air 11/27/22 09:00 Room Air Cardiovascular + bradycardic Respiratory normal respiratory effort, lungs clear to auscultation Pre-Sedation Airway Assessment Smoking Status: Never smoker Hx Sleep Apnea: No Short, Thick Neck: No Thyromental Distance: > or= 3.5 Finger Breadths Oral Cavity: + WNL Mallampati Class: III ASA: ASA3 NPO Status Date of Last Intake of Fluids: 11/27/22 Date of Last Intake of Solid Food: 11/27/22 Procedure Planning Contraindications for Sedation: none Current Medications Reviewed: Yes Notes The planned sedation has been discussed with the patient. Informed Consent was obtained. I have identified the patient, determined the appropriateness of sedation and have assessed the patient immediately prior to the procedure. All medicine(s) and interventions are by my order.
[2022-11-28] MEDS: INSULIN ASPART PER UNIT SC SCH ×4 (10:33→21:40)
[2022-11-28] MEDS: MULTIVITAMIN TAB PO SCH (10:46)
[2022-11-28] MEDS: LANTUS PER UNIT CHARGE SQ SCH ×2 (10:46→21:41)
[2022-11-28] MEDS: dexAMETHasone 6 MG in SYRINGE 0 ML IV SCH (10:46)
[2022-11-28] MEDS: LOSARTAN POTASSIUM 25 MG TAB PO SCH (10:46)
[2022-11-28] MEDS: FINASTERIDE 5 MG TAB PO SCH (10:46)
[2022-11-28] MEDS ORDERED: LANTUS PER UNIT CHARGE SQ ONE (11:45)
--- NOTE | 2022-11-28 11:53 | Pharmacy Report ---
Pharmacy Glycemic Short Note 2 - Date of Service November 28, 2022 - Glycemic Short BSG Results (Last 24 hours): 11/27/22 11/27/22 16:43 20:31 POC Glucose 194 H 208 H OUTPATIENT ANTIDIABETIC REGIMEN: * Humulin 70/30 25 units BIDM * metformin 500mg PO BID HbA1C: 6.9% (11/07/22) ASSESSMENT: 11/28: * BSGs 194-208mg/dL and 208mg/dL fasting this AM. Pt received 30 units of basal and 26 units of bolus insulin yesterday. * NPO overnight and into this AM prior to custodial laborer. Continues on dex 6mg IV daily. * Lantus given later this morning as patient was in custodial laborer for pacer placement and Novolog was not given this AM to correct 208mg/dL AM BSG. * Will give 5 additional units of Lantus with lunch today for total AM, 25 units and titrate HS scale based upon BSG. Novolog paramaeters tightened to 20/6. 11/27: * Patient is a 77 YOM POD #1 spinal fusion and history of DM2 receiving 6mg IV dexamethasone daily and now NPO for possible pacemaker placement. Pharmacy consulted to assist with glycemic management. * BSGs [phone]/dL the last 24h. Fasting elevated this AM to 200mg/dL. Patient received 15 units of basal yesterday and 6 units of bolus last night. * NPO and receiving steroids * Lantus 20 units this AM (severe stress). Will plan for an HS scale given continued NPO status. Novolog initiated as a moderate stress scale and will tighten. PLAN FOR INPATIENT GLYCEMIC CONTROL: * Hold outpatient oral diabetes medications * Basal insulin * Lantus 25 units qAM, HS scale * Bolus insulin * NovoLog per scale ACHS or Q6hrs while NPO * Goal Range: Low 110 mg/dL - High 140 mg/dL * Correction Factor: 20 mg/dL/unit * Nutritional / Prandial insulin per carb ratio of 1 unit per 6 grams CHO consumed
--- NOTE | 2022-11-28 14:56 | Hospitalist Progress Note ---
Date of Service November 28, 2022 Assessment & Plan (1) Neurogenic claudication due to lumbar spinal stenosis: Plan: Status post L5-S1 decompression and fusion on 11/26/2022 Management will be as per orthopedic surgeon Has minimal pain at the back but otherwise is stable Back pain seems to be controlled without any radiation (2) Heart block AV second degree: Plan: Noted to have second-degree AV block during the procedure Recurrence of the AV block as of yesterday Appreciate cardiology input and recommendation Will be evaluated by EP linen checker and pacemaker placement as soon as possible Status post dual-chamber pacemaker placement on 11/28/[address] Pandey EKG showed captured rhythm at 67/min (3) CAD (coronary artery disease), [place] coronary artery: Plan: History of CABG x3 No acute cardiac symptoms except bradycardia arrhythmia secondary to 2 is to 1 AV block No acute cardiac symptoms (4) S/P CABG x 3: (5) Type 2 diabetes mellitus: Plan: SSI Blood sugar seems to be controlled (6) HTN (hypertension): Plan: Blood pressure is controlled and will continue current medication except beta- stefania (7) Dyslipidemia: Plan: Continue statin DVT prophylaxis As per Ortho CODE STATUS Full Medically stable Admission and Anticipated Discharge Date Admission Date: November 26, 2022 Subjective 11/27/2022 The patient was seen and examined in telemetry unit He has had episodes of 2-1 AV block yesterday without any symptoms He denies any symptoms as of today too 11/28/2022 The patient was seen and examined in telemetry unit She has had episodes of 2 is to 1 block last night with heart rate around 30s She is status post PPM placement this morning Denies any other significant symptoms Review of Systems Review of Systems: All systems reviewed and are unremarkable except as noted below Physical Exam Physical Exam: Lying in bed comfortably Constitutional: well developed, well nourished, + ill appearing and + obese Eyes: PERRL, conjunctivae normal, anicteric sclerae ENMT: external ear and nose normal, oropharynx normal Neck: trachea midline, no thyromegaly Respiratory: no respiratory distress Auscultation: lungs clear to auscultation bilaterally Cardiovascular: Rate/Rhythm: regular rate and regular rhythm; not tachycardic Heart Sounds: normal S1 and normal S2; no murmur Extremities: no edema Gastrointestinal (Abdomen): Inspection/Auscultation: normal bowel sounds; abdomen not distended Percussion/Palpation: abdomen soft; abdomen nontender Musculoskeletal: Has back pain but no other significant arthritis involving any of the joints Neurologic: normal touch/pain/proprioception and moves all extremities; no focal motor deficits Psychiatric: A+Ox3, euthymic affect Lymphatic: no cervical or axillary lymphadenopathy Results & Data Results & Data ([facility]) Vital Signs (Past 12 Hours) Vital Signs Temp Pulse Pulse Resp BP BP Pulse Ox 11/28/22 13:00 36.9 C 11/28/22 12:50 36.9 C 77 16 172/81 H 95 11/28/22 10:00 37 C 72 16 128/77 95 11/28/22 09:19 16 161/80 H 97 11/28/22 07:19 40 L 16 157/113 H 98 11/28/22 07:00 39 L 11/28/22 07:00 37 C 34 L 16 131/71 97 11/28/22 04:39 36.3 C L 40 L 18 130/64 96 O2 Del Method 11/28/22 13:00 11/28/22 12:50 Room Air 11/28/22 10:00 Room Air 11/28/22 09:19 Room Air 11/28/22 07:19 Room Air 11/28/22 07:00 11/28/22 07:00 Room Air 11/28/22 04:39 Room Air Medications Administered Current Inpatient Medications Acetaminophen (Acetaminophen 500 Mg Tab) 1,000 mg PO Q8H PRN PRN Reason: MILD Pain Scale 1,2,3 & Pre PT Stop: 12/26/22 18:21 Last Admin: 11/27/22 21:23 Dose: 1,000 mg Al Hydrox/Mg Hydrox/Simethicone (Aluminum/Magnesium Susp 30 Ml Udc) 30 ml PO Q6H PRN PRN Reason: Dyspepsia Stop: 12/26/22 18:21 Atorvastatin Calcium (Atorvastatin 40 Mg Tab) 40 mg PO HS DEEPIKA Stop: 12/26/22 20:59 Last Admin: 11/27/22 21:23 Dose: 40 mg Bisacodyl (Bisacodyl 10 Mg Supp) 10 mg ID DAILY PRN PRN Reason: Constipation Stop: 12/26/22 18:21 Dextrose (Dextrose 50% 50 Ml Syringe) 25 - 50 ml IV UD PRN; Protocol PRN Reason: Hypoglycemia Protocol Stop: 12/26/22 19:44 Diphenhydramine HCl (Diphenhydramine Capsule 25 Mg Cap) 25 mg PO Q6H PRN PRN Reason: Allergic Rhinitis/Insomnia Stop: 12/26/22 18:21 Famotidine (Famotidine 20 Mg Tab) 20 mg PO Q12H PRN PRN Reason: Dyspepsia Stop: 12/26/22 18:21 Finasteride (Finasteride 5 Mg Tab) 5 mg PO QAM DEEPIKA Stop: 12/27/22 08:59 Last Admin: 11/28/22 10:46 Dose: 5 mg Glucagon (Glucagon For Inj 1 Mg Vial) 1 mg IM UD PRN; Protocol PRN Reason: Hypoglycemia Protocol Stop: 12/26/22 19:44 Glucose (Glucose 40% Gel 15 Gm Tube) 15 - 30 gm PO UD PRN; Protocol PRN Reason: Hypoglycemia Protocol Stop: 12/26/22 19:44 Glucose (Glucose 10 Tab/Tube) 4 - 8 tab PO UD PRN; Protocol PRN Reason: Hypoglycemia Protocol Stop: 12/26/22 19:44 Hydromorphone HCl (Hydromorphone Inj 0.5 Mg/0.5 Ml Syr) 0.5 mg IV Q3H PRN PRN Reason: MODERATE Pain (Scale 4,5,6) & Pre PT Stop: 12/10/22 18:21 Last Admin: 11/26/22 21:27 Dose: 0.5 mg Hydromorphone HCl (Hydromorphone Inj 1 Mg/Ml Syringe) 1 mg IV Q3H PRN PRN Reason: SEVERE Pain (Scale 7,8,9,10) Stop: 12/10/22 18:21 Hydroxyzine HCl (Hydroxyzine Hcl 25 Mg Tab) 25 mg PO Q8H PRN PRN Reason: Anxiety Stop: 12/26/22 18:21 Promethazine HCl 12.5 mg/ (Sodium Chloride) 50.5 mls @ 202 mls/hr IV Q6H PRN PRN Reason: Nausea &/or Vomiting Stop: 12/26/22 18:21 Dexamethasone 6 mg/ Syringe 1.5 mls @ 1 mls/min IV DAILY DEEPIKA Stop: 11/29/22 09:02 Last Admin: 11/28/22 10:46 Dose: 1 mls/min Influenza Virus Vaccine Quadrival (Do Not Administer Flu Vaccine) 1 each N/A PRN PRN PRN Reason: Notification Stop: 12/26/22 18:21 Insulin Aspart (Insulin Aspart Per Unit) 0 units SC ACHS [facility]; Protocol Stop: 12/26/22 20:59 Last Admin: 11/28/22 12:35 Dose: 8 units Insulin Glargine (Lantus Per Unit Charge) 0 units SQ HS [facility]; Protocol Stop: 12/27/22 20:59 Last Admin: 11/27/22 21:26 Dose: 10 units Insulin Glargine (Lantus Per Unit Charge) 25 units SQ DAILY [facility] Stop: 12/27/22 08:59 Lorazepam (Lorazepam 0.5 Mg Tab) 0.5 mg PO Q8H PRN PRN Reason: Sedation/Anxiety Stop: 12/26/22 18:21 Lorazepam (Lorazepam 2 Mg/1 Ml Vial) 0.5 mg IV Q8H PRN PRN Reason: Sedation/Anxiety Stop: 12/26/22 18:21 Losartan Potassium (Losartan Potassium 25 Mg Tab) 25 mg PO QAM [facility] Stop: 12/27/22 08:59 Last Admin: 11/28/22 10:46 Dose: 25 mg Magnesium Hydroxide (Magnesium Hydroxide Susp 30 Ml Udc) 30 ml PO Q24H PRN PRN Reason: Constipation Stop: 12/26/22 18:21 Metoprolol Tartrate (Metoprolol Tartrate 25 Mg Tab) 25 mg PO BID [facility] Stop: 12/26/22 20:59 Miscellaneous (Carbohydrates For Hypoglycemia ) 15 - 30 gm PO UD PRN PRN Reason: Hypoglycemia Treatment Stop: 12/26/22 19:44 Miscellaneous Information (Pharmacy Glycemic Mgmt Consult) 1 each N/A UD PRN PRN Reason: Consult Stop: 12/26/22 18:21 Multivitamins (Multivitamin Tab) 1 tab PO [facility] Stop: 12/27/22 08:59 Last Admin: 11/28/22 10:46 Dose: 1 tab Naloxone HCl (Naloxone Hcl 0.4 Mg/1 Ml Vial/Carp) 0.1 mg IV Q5M PRN PRN Reason: Oversedation/Resp depression Stop: 12/26/22 18:21 Nitroglycerin (Nitroglycerin Sl 0.4 Mg/Tab Tab) 0.4 mg SL UD [facility] Stop: 12/26/22 18:21 Oxycodone HCl (Oxycodone Hcl Ir 5 Mg Tab (Immediate Release)) 5 - 10 mg PO Q4H PRN PRN Reason: Pain & Pre PT Stop: 12/10/22 18:21 Pantoprazole Sodium (Pantoprazole 40 Mg Tab) 40 mg PO DAILY PRN; Protocol PRN Reason: Acid Reflux Stop: 12/26/22 18:39 Pneumococcal Polyvalent Vaccine (Do Not Administer Pneumococcal Vaccine) 1 each N/A PRN PRN PRN Reason: Notification Stop: 12/26/22 18:21 Senna/Docusate Sodium (Docusate Sodium/Senna 50/8.6mg Tab) 2 tab PO HS DEEPIKA Stop: 12/26/22 20:59 Last Admin: 11/27/22 21:23 Dose: 2 tab Sodium Biphosphate/Sodium Phosphate (Sod Phosphate/Sod Biphosphate Enema 132 Ml Btl) 132 ml ID ONE PRN PRN Reason: Constipation Stop: 12/26/22 18:21 Tramadol HCl (Tramadol Hcl 50 Mg Tablet) 50 - 100 mg PO Q4H PRN PRN Reason: Moderate-Severe pain & Pre PT Stop: 12/26/22 18:21
--- NOTE | 2022-11-28 15:15 | XRay Report ---
XR chest 1V portable HISTORY: Status post pacemaker placement. COMPARISON: Chest 11/07/2022. FINDINGS: No pneumothorax. No pleural effusions. There has been interval placement of a left-sided du al-chamber pacemaker. The leads appear intact. There are postoperative changes. The heart remains mil dly enlarged. No evidence for pulmonary edema. IMPRESSION: Status post left-sided dual-chamber pacemaker. No pneumothorax. ACT 112: Negative or not required by law. Electronically signed by: Volodymyr De Oliveira M.D. 11/28/2022 3:14 PM
--- NOTE | 2022-11-28 16:06 | Electrocardiogram Report ---
Test Reason : Blood Pressure : / mmHG Vent. Rate : 067 BPM Atrial Rate : 067 BPM P-R Int : 144 ms QRS Dur : 132 ms QT Int : 470 ms P-R-T Axes : 003 134 166 degrees QTc Int : 496 ms Atrial-sensed ventricular-paced rhythm Abnormal ECG When compared with ECG of 27-NOV-2022 05:09, Electronic ventricular pacemaker has replaced Sinus rhythm Confirmed by Refugio May ([id number]) on 11/28/2022 4:05:40 PM Referred By: Uche Porras Confirmed By:Refugio May
--- NOTE | 2022-11-28 16:06 | Cardiology Progress Note ---
Date of Service November 28, 2022 Assessment & Plan (1) Heart block AV second degree: (2) Bifascicular block: (3) CAD (coronary artery disease), [place] coronary artery: (4) S/P CABG x 3: Plan 77-year-old patient POD#1 dual chamber PPM implant, POD #2 L5-S1 fusion. Restart metoprolol today. Continue other cardiovascular medications as previously ordered. We will check at [facility] office in 1 week. Clinic interrogation in 6 weeks. Admission and Anticipated Discharge Date Admission Date: November 26, 2022 Subjective Patient seen examined the bedside. Feeling well today. Significant other present at bedside as well. Patient denies chest pain, palpitations, shortness of breath. Telemetry reveals atrial sensed, ventricular paced rhythm. Back pain noted. Offers no other complaints Review of Systems Review of Systems: All systems reviewed & are unremarkable except as noted in Subjective Physical Exam Constitutional: well developed and well nourished; no acute distress Respiratory: + respiratory distress; no labored breathing and no retractions Auscultation: no crackles, no rales, no rhonchi and no wheezes Cardiovascular: Rate/Rhythm: regular rate and regular rhythm Heart Sounds: normal S1, normal S2 and + murmur (2/6 systolic ejection murmur heard best at the right second intercostal spa) Extremities: no edema Gastrointestinal (Abdomen): Inspection/Auscultation: normal bowel sounds; abdomen not distended Percussion/Palpation: abdomen soft; abdomen nontender, no guarding and abdomen not rigid Neurologic: CN's II-XI intact bilaterally and moves all extremities; no focal motor deficits Results & Data ([facility]) Vital Signs (Past 12 Hours) Vital Signs Temp Pulse Pulse Resp BP BP Pulse Ox 11/28/22 16:01 36.6 C 93 H 18 126/72 96 11/28/22 15:00 89 11/28/22 15:04 95 11/28/22 13:00 36.9 C 11/28/22 12:50 36.9 C 77 16 172/81 H 95 11/28/22 10:00 37 C 72 16 128/77 95 11/28/22 09:19 16 161/80 H 97 11/28/22 07:19 40 L 16 157/113 H 98 11/28/22 07:00 39 L 11/28/22 07:00 37 C 34 L 16 131/71 97 11/28/22 04:39 36.3 C L 40 L 18 130/64 96 O2 Del Method 11/28/22 16:01 Room Air 11/28/22 15:00 11/28/22 15:04 11/28/22 13:00 11/28/22 12:50 Room Air 11/28/22 10:00 Room Air 11/28/22 09:19 Room Air 11/28/22 07:19 Room Air 11/28/22 07:00 11/28/22 07:00 Room Air 11/28/22 04:39 Room Air
[2022-11-28] MEDS: oxyCODONE HCL IR 5 MG TAB (IMMEDIATE RELEASE) PO PRN (16:29)
[2022-11-28] MEDS: ATORVASTATIN 40 MG TAB PO SCH (21:40)
[2022-11-28] MEDS: ACETAMINOPHEN 500 MG TAB PO PRN (21:40)
[2022-11-28] MEDS: DOCUSATE SODIUM/SENNA 50/8.6MG TAB PO SCH (21:40)
[2022-11-28] MEDS: METOPROLOL TARTRATE 25 MG TAB PO SCH (22:02)
[2022-11-29] MEDS: ACETAMINOPHEN 500 MG TAB PO PRN ×3 (05:45→21:11)
[2022-11-29 06:46] LABS: Basophils # (auto) 0.03 K/uL (0-0.2); Basophils % (auto) 0.3 %; Eosinophils # (auto) 0.17 K/uL (0-0.50); Eosinophils % (auto) 1.9 %; Hematocrit (blood only) 39.7 % (40.1-51.0); Hemoglobin 13.8 g/dl (14.0-18.0); Immature Granulocytes # (auto) 0.09 K/uL (0.00-0.02); Lymphocytes # (auto) 1.67 K/uL (1.2-3.4); Lymphocytes % (auto) 18.2 %; Mean Corpuscular Hemoglobin 30.7 pg (25.0-34.0); Mean Corpuscular Hgb Conc 34.8 g/dL (32.0-36.0); Mean Corpuscular Volume 88.2 fL (80.0-100.0); Mean Platelet Volume 12.6 fL (9.4-12.4); Monocytes # (auto) 0.97 K/uL (0.24-0.82); Monocytes % (auto) 10.6 %; Neutrophils # (auto) 6.25 K/uL (1.4-6.5); Platelet Count 113 K/uL (130-400); RDW Coefficient of Variation 13.5 % (11.5-14.5); RDW Standard Deviation 43.3 fL (36.4-46.3); White Blood Count 9.18 K/ul (4.8-10.8)
[2022-11-29 07:14] LABS: BUN Creatinine Ratio 22.5 (10-20); Calcium 8.7 mg/dl (8.5-10.1); Creatinine Clr Calc Pharmacy 72.9 ml/min; Est GFR (African American) 96.3 ml/min; Est GFR (Non-African American) 83.1 ml/min; Potassium 3.8 mmol/L (3.5-5.1)
--- NOTE | 2022-11-29 08:12 | Orthopedic Progress Note ---
Date of Service November 29, 2022 Assessment & Plan (1) Neurogenic claudication due to lumbar spinal stenosis: Plan: Stable continue physical therapy monitor his KAREN output anticipate discharge home tomorrow. Admission and Anticipated Discharge Date Admission Date: November 26, 2022 Subjective Patient's back pain is controlled leg pain markedly improved. He is tolerating physical therapy. Physical Exam Physical Exam: Sitting in the chair. It is distracted testing. KAREN drains functional. Results & Data ([facility]) Vital Signs (Past 12 Hours) Vital Signs Temp Pulse Pulse Resp BP Pulse Ox O2 Del Method 11/29/22 07:00 67 11/29/22 03:00 36.6 C 67 16 159/86 H 97 Room Air 11/28/22 23:17 36.9 C 64 18 102/74 93 Room Air 11/28/22 23:00 74
[2022-11-29] MEDS: MULTIVITAMIN TAB PO SCH (08:39)
[2022-11-29] MEDS: FINASTERIDE 5 MG TAB PO SCH (08:39)
[2022-11-29] MEDS: INSULIN ASPART PER UNIT SC SCH ×4 (08:39→21:07)
[2022-11-29] MEDS: LOSARTAN POTASSIUM 25 MG TAB PO SCH (08:39)
[2022-11-29] MEDS: dexAMETHasone 6 MG in SYRINGE 0 ML IV SCH (08:39)
[2022-11-29] MEDS: METOPROLOL TARTRATE 25 MG TAB PO SCH ×2 (08:39→21:11)
[2022-11-29] MEDS ORDERED: LANTUS PER UNIT CHARGE SQ SCH (09:00)
--- NOTE | 2022-11-29 13:57 | Hospitalist Progress Note ---
Date of Service November 29, 2022 Assessment & Plan (1) Neurogenic claudication due to lumbar spinal stenosis: Plan: Status post L5-S1 decompression and fusion on 11/26/2022 Management will be as per orthopedic surgeon Has minimal pain at the back but otherwise is stable Back pain seems to be controlled without any radiation to RLE. (2) Heart block AV second degree: Plan: Noted to have second-degree AV block during the procedure f/b recurrence of AV block. EP evaled Status post dual-chamber pacemaker placement on 11/28/[address] Pandey f/u cardio in 1 week upon DC. (3) CAD (coronary artery disease), [place] coronary artery: Plan: History of CABG x3 No acute cardiac symptoms except bradycardia arrhythmia secondary to 2 is to 1 AV block No acute cardiac symptoms (4) S/P CABG x 3: (5) Type 2 diabetes mellitus: Plan: SSI Blood sugar seems to be controlled (6) HTN (hypertension): Plan: Blood pressure is controlled and will continue current medication except beta- stefania (7) Dyslipidemia: Plan: Continue statin DVT prophylaxis As per Ortho CODE STATUS Full Medically stable Admission and Anticipated Discharge Date Admission Date: November 26, 2022 Subjective Patient seen and examined at bedside as a follow-up of neurogenic claudication due to lumbar spinal stenosis status post L5-S1 decompression and fusion on 11/26/2022 and secondary AV block status post dual-chamber pacemaker placement on 11/28/2022. Patient was lying in bed, on room air, NAD, reports pain under control, reports low back pain and radicular RLE pain improved, reports eating okay and moving bowels okay, denies any pain or headache or dizziness or sore throat or cough or other review of symptoms. Physical Exam Physical Exam: GENERAL: Alert and oriented x3. NAD, on RA. HEENT: No pallor, no icterus. Pupils equal, round and reactive to light. Oral mucosa moist. NECK: No JVD, no neck masses. HEART: S1 and S2 heard. Regular rate and rhythm. No murmur, no gallop. RESPIRATORY SYSTEM: Normal AP diameter. No accessory muscle use. No wheezing, no crackles. ABDOMEN: Soft, bowel sounds present, nontender, no distention. CENTRAL NERVOUS SYSTEM: No facial droop. Speech is clear. Obeys simple commands. Moves extremities. EXTREMITIES: No edema, no erythema seen. Left chest with clean dressing over the site of pacemaker placement. Low back with clean dressing without soakage. KAREN drain with minimal serosanguineous collection noted. Results & Data Results & Data ([facility]) Vital Signs (Past 12 Hours) Vital Signs Temp Pulse Pulse Resp BP Pulse Ox O2 Del Method 11/29/22 11:33 36.5 C 79 19 120/72 94 Room Air 11/29/22 07:00 36.8 C 78 16 127/72 97 Room Air 11/29/22 07:00 67 11/29/22 03:00 36.6 C 67 16 159/86 H 97 Room Air
[2022-11-29] MEDS: DOCUSATE SODIUM/SENNA 50/8.6MG TAB PO SCH (21:11)
[2022-11-29] MEDS: ATORVASTATIN 40 MG TAB PO SCH (21:11)
[2022-11-30] MEDS: oxyCODONE HCL IR 5 MG TAB (IMMEDIATE RELEASE) PO PRN ×2 (01:11→08:46)
[2022-11-30] MEDS: ACETAMINOPHEN 500 MG TAB PO PRN ×3 (06:44→22:48)
[2022-11-30] MEDS: INSULIN ASPART PER UNIT SC SCH ×4 (08:22→20:37)
[2022-11-30] MEDS: FINASTERIDE 5 MG TAB PO SCH (08:23)
[2022-11-30] MEDS: LOSARTAN POTASSIUM 25 MG TAB PO SCH (08:23)
[2022-11-30] MEDS: MULTIVITAMIN TAB PO SCH (08:23)
[2022-11-30] MEDS: METOPROLOL TARTRATE 25 MG TAB PO SCH ×2 (08:23→20:31)
[2022-11-30] MEDS ORDERED: LANTUS PER UNIT CHARGE SQ SCH (09:00)
--- NOTE | 2022-11-30 11:55 | Orthopedic Progress Note ---
Date of Service November 30, 2022 Assessment & Plan (1) Neurogenic claudication due to lumbar spinal stenosis: Plan: This time we will continue physical therapy discontinue his drain today. Plan for discharge tomorrow to rehab. Admission and Anticipated Discharge Date Admission Date: November 26, 2022 Subjective Back pain controlled leg pain markedly improved Physical Exam Physical Exam: Patient is ambulating the halls with a walker. Is good stren [facility] testing. Results & Data ([facility]) Vital Signs (Past 12 Hours) Vital Signs Temp Pulse Pulse Pulse Resp BP Pulse Ox 11/30/22 11:11 36.6 C 77 19 95/78 L 95 11/30/22 07:00 63 11/30/22 07:26 37 C 79 20 132/76 96 11/30/22 02:35 36.5 C 69 18 172/83 H 97 O2 Del Method 11/30/22 11:11 Room Air 11/30/22 07:00 11/30/22 07:26 Room Air 11/30/22 02:35 Room Air
--- NOTE | 2022-11-30 14:35 | Hospitalist Progress Note ---
Date of Service November 30, 2022 Assessment & Plan (1) Neurogenic claudication due to lumbar spinal stenosis: Plan: Status post L5-S1 decompression and fusion on 11/26/2022 Management will be as per orthopedic surgeon Has minimal pain at the back but otherwise is stable Back pain seems to be controlled without any radiation to RLE. (2) Heart block AV second degree: Plan: Noted to have second-degree AV block during the procedure f/b recurrence of AV block. EP evaled Status post dual-chamber pacemaker placement on 11/28/[address] Pandey f/u cardio in 1 week upon DC. (3) CAD (coronary artery disease), [place] coronary artery: Plan: History of CABG x3 No acute cardiac symptoms except bradycardia arrhythmia secondary to 2 is to 1 AV block No acute cardiac symptoms (4) S/P CABG x 3: (5) Type 2 diabetes mellitus: Plan: SSI Blood sugar seems to be controlled (6) HTN (hypertension): Plan: Blood pressure is controlled and will continue current medication except beta- stefania (7) Dyslipidemia: Plan: Continue statin DVT prophylaxis As per Ortho CODE STATUS Full Medically stable, likely will need rehab/snf. Admission and Anticipated Discharge Date Admission Date: November 26, 2022 Subjective Patient seen and examined at bedside as a follow-up of neurogenic claudication due to lumbar spinal stenosis status post L5-S1 decompression and fusion on 11/26/2022 and secondary AV block status post dual-chamber pacemaker placement on 11/28/2022. Patient was sitting up in chair, on room air, NAD, reports pain under control, reports low back pain and radicular RLE pain improved, reports eating okay and moving bowels okay, denies any pain or headache or dizziness or sore throat or cough or other review of symptoms. Expresses concerns that he might need snf/rehab due to him having 2 surgeries this admission and reports he has multiple steps in his house. CM is consulted. Physical Exam Physical Exam: GENERAL: Alert and oriented x3. NAD, on RA. HEENT: No pallor, no icterus. Pupils equal, round and reactive to light. Oral mucosa moist. NECK: No JVD, no neck masses. HEART: S1 and S2 heard. Regular rate and rhythm. No murmur, no gallop. RESPIRATORY SYSTEM: Normal AP diameter. No accessory muscle use. No wheezing, no crackles. ABDOMEN: Soft, bowel sounds present, nontender, no distention. CENTRAL NERVOUS SYSTEM: No facial droop. Speech is clear. Obeys simple commands. Moves extremities. EXTREMITIES: No edema, no erythema seen. Left chest with clean dressing over the site of pacemaker placement. Low back with clean dressing without soakage. KAREN drain with minimal serosanguineous collection noted. Results & Data Results & Data ([facility]) Vital Signs (Past 12 Hours) Vital Signs Temp Pulse Pulse Pulse Resp BP Pulse Ox 11/30/22 11:11 36.6 C 77 19 95/78 L 95 11/30/22 07:00 63 11/30/22 07:26 37 C 79 20 132/76 96 11/30/22 02:35 36.5 C 69 18 172/83 H 97 O2 Del Method 11/30/22 11:11 Room Air 11/30/22 07:00 11/30/22 07:26 Room Air 11/30/22 02:35 Room Air
[2022-11-30] MEDS: DOCUSATE SODIUM/SENNA 50/8.6MG TAB PO SCH (20:31)
[2022-11-30] MEDS: ATORVASTATIN 40 MG TAB PO SCH (20:31)
[2022-12-01] MEDS: oxyCODONE HCL IR 5 MG TAB (IMMEDIATE RELEASE) PO PRN ×2 (06:20→12:22)
[2022-12-01] MEDS: INSULIN ASPART PER UNIT SC SCH ×4 (08:10→20:21)
[2022-12-01] MEDS: LANTUS PER UNIT CHARGE SQ SCH (08:13)
[2022-12-01] MEDS: ACETAMINOPHEN 500 MG TAB PO PRN ×2 (08:32→16:20)
[2022-12-01] MEDS: METOPROLOL TARTRATE 25 MG TAB PO SCH ×2 (08:32→20:20)
[2022-12-01] MEDS: LOSARTAN POTASSIUM 25 MG TAB PO SCH (08:33)
[2022-12-01] MEDS: FINASTERIDE 5 MG TAB PO SCH (08:33)
[2022-12-01] MEDS: MULTIVITAMIN TAB PO SCH (08:33)
--- NOTE | 2022-12-01 09:48 | Orthopedic Progress Note ---
Date of Service December 01, 2022 Assessment & Plan (1) Neurogenic claudication due to lumbar spinal stenosis: Plan: At this time we will continue therapy as tolerated. We are pending possible discharge if rehab is available. Admission and Anticipated Discharge Date Admission Date: November 26, 2022 Subjective Patient's back pain is controlled leg pain improved Physical Exam Physical Exam: Patient is in the chair at the bedside is good strength casimiro ting. Results & Data ([facility]) Vital Signs (Past 12 Hours) Vital Signs Temp Pulse Pulse Resp BP BP Pulse Ox 12/01/22 07:00 72 12/01/22 07:05 37.2 C 74 18 117/66 97 12/01/22 02:44 36.7 C 62 15 149/71 H 95 11/30/22 23:03 70 11/30/22 22:40 37.3 C 76 16 148/83 H 95 O2 Del Method 12/01/22 07:00 12/01/22 07:05 Room Air 12/01/22 02:44 Room Air 11/30/22 23:03 11/30/22 22:40 Room Air
--- NOTE | 2022-12-01 12:11 | Pharmacy Report ---
Pharmacy Glycemic Short Note 2 - Date of Service December 01, 2022 - Glycemic Short BSG Results (Last 24 hours): 11/30/22 11/30/22 12/01/22 16:06 20:20 07:16 POC Glucose 162 H 223 H 225 H 12/01/22 12/01/22 11:15 11:17 POC Glucose 305 H* 221 H OUTPATIENT ANTIDIABETIC REGIMEN: * Humulin 70/30 25 units BIDM * metformin 500mg PO BID HbA1C: 6.9% (11/07/22) ASSESSMENT: 12/01: * 63 units SQ insulin over the last 24 hrs * Fasting BSG 225 this AM with 30 units basal insulin - unclear why fasting BSGs upwards trending in the setting of withdrawal of IV high dose steroids, will cautiously uptitrate dose today with f/u eval of fasting BSG tomorrow AM * Post-prandial BSGs have been elevated above goal as well despite d/c of steroid. Will again uptitrate Novolog prandial dose 11/28: * BSGs 194-208mg/dL and 208mg/dL fasting this AM. Pt received 30 units of basal and 26 units of bolus insulin yesterday. 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 Continues on dex 6mg IV daily. 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 * Will give 5 additional units of Lantus with lunch today for total AM, 25 units and titrate HS scale based upon BSG. Novolog paramaeters tightened to 20/6. 11/27: * Patient is a 77 YOM POD #1 spinal fusion and history of DM2 receiving 6mg IV dexamethasone daily and now NPO for possible pacemaker placement. Pharmacy consulted to assist with glycemic management. * BSGs [phone]/dL the last 24h. Fasting elevated this AM to 200mg/dL. Patient received 15 units of basal yesterday and 6 units of bolus last night. * NPO and receiving steroids * Lantus 20 units this AM (severe stress). Will plan for an HS scale given continued NPO status. Novolog initiated as a moderate stress scale and will tighten. PLAN FOR INPATIENT GLYCEMIC CONTROL: * Hold outpatient oral diabetes medications * Basal insulin * Lantus 35 units this AM - with f/u assessment tomorrow AM * Bolus insulin * NovoLog per scale ACHS or Q6hrs while NPO * Goal Range: Low 110 mg/dL - High 140 mg/dL * Correction Factor: 20 mg/dL/unit * Nutritional / Prandial insulin per carb ratio of 1 unit per 6 grams CHO consumed
--- NOTE | 2022-12-01 15:29 | Hospitalist Progress Note ---
Date of Service December 01, 2022 Assessment & Plan (1) Neurogenic claudication due to lumbar spinal stenosis: Plan: Status post L5-S1 decompression and fusion on 11/26/2022 Management will be as per orthopedic surgeon Has minimal pain at the back but otherwise is stable Back pain seems to be controlled without any radiation to RLE. (2) Heart block AV second degree: Plan: Noted to have second-degree AV block during the procedure f/b recurrence of AV block. EP evaled Status post dual-chamber pacemaker placement on 11/28/[address] Pandey f/u cardio in 1 week upon DC. (3) CAD (coronary artery disease), [place] coronary artery: Plan: History of CABG x3 No acute cardiac symptoms except bradycardia arrhythmia secondary to 2 is to 1 AV block No acute cardiac symptoms (4) S/P CABG x 3: (5) Type 2 diabetes mellitus: Plan: SSI Blood sugar seems to be controlled (6) HTN (hypertension): Plan: Blood pressure is controlled and will continue current medication except beta- stefania (7) Dyslipidemia: Plan: Continue statin DVT prophylaxis As per Ortho CODE STATUS Full Medically stable, likely will need rehab/snf. Admission and Anticipated Discharge Date Admission Date: November 26, 2022 Subjective Patient seen and examined at bedside as a follow-up of neurogenic claudication due to lumbar spinal stenosis status post L5-S1 decompression and fusion on 11/26/2022 and secondary AV block status post dual-chamber pacemaker placement on 11/28/2022. Patient was lying in bed, on room air, NAD, reports pain under control, reports low back pain and radicular RLE pain improved, reports eating okay and moving bowels okay, denies any pain or headache or dizziness or sore throat or cough or other review of symptoms. Working well w/ pt/ot. awaiting placement. Physical Exam Physical Exam: GENERAL: Alert and oriented x3. NAD, on RA. HEENT: No pallor, no icterus. Pupils equal, round and reactive to light. Oral mucosa moist. NECK: No JVD, no neck masses. HEART: S1 and S2 heard. Regular rate and rhythm. No murmur, no gallop. RESPIRATORY SYSTEM: Normal AP diameter. No accessory muscle use. No wheezing, no crackles. ABDOMEN: Soft, bowel sounds present, nontender, no distention. CENTRAL NERVOUS SYSTEM: No facial droop. Speech is clear. Obeys simple commands. Moves extremities. EXTREMITIES: No edema, no erythema seen. Left chest with clean dressing over the site of pacemaker placement. Low back with clean dressing without soakage. Results & Data Results & Data ([facility]) Vital Signs (Past 12 Hours) Vital Signs Temp Pulse Pulse Resp BP BP Pulse Ox 12/01/22 15:00 36.8 C 12/01/22 11:19 36.9 C 65 18 125/64 94 12/01/22 07:00 72 12/01/22 07:05 37.2 C 74 18 117/66 97 O2 Del Method 12/01/22 15:00 12/01/22 11:19 Room Air 12/01/22 07:00 12/01/22 07:05 Room Air
[2022-12-01] MEDS: ATORVASTATIN 40 MG TAB PO SCH (20:20)
[2022-12-01] MEDS: DOCUSATE SODIUM/SENNA 50/8.6MG TAB PO SCH (20:20)
[2022-12-02] MEDS: ACETAMINOPHEN 500 MG TAB PO PRN ×2 (06:40→14:48)
[2022-12-02] MEDS: LANTUS PER UNIT CHARGE SQ SCH (08:11)
[2022-12-02] MEDS: INSULIN ASPART PER UNIT SC SCH ×3 (08:11→16:37)
[2022-12-02] MEDS: LOSARTAN POTASSIUM 25 MG TAB PO SCH (08:17)
[2022-12-02] MEDS: oxyCODONE HCL IR 5 MG TAB (IMMEDIATE RELEASE) PO PRN ×2 (08:17→16:34)
[2022-12-02] MEDS: METOPROLOL TARTRATE 25 MG TAB PO SCH (08:17)
[2022-12-02] MEDS: FINASTERIDE 5 MG TAB PO SCH (08:18)
[2022-12-02] MEDS: MULTIVITAMIN TAB PO SCH (08:18)
--- NOTE | 2022-12-02 13:47 | Hospitalist Progress Note ---
Date of Service December 02, 2022 Assessment & Plan (1) Neurogenic claudication due to lumbar spinal stenosis: Plan: Status post L5-S1 decompression and fusion on 11/26/2022 Management will be as per orthopedic surgeon Has minimal pain at the back but otherwise is stable Back pain seems to be controlled without any radiation to RLE. (2) Heart block AV second degree: Plan: Noted to have second-degree AV block during the procedure f/b recurrence of AV block. EP evaled Status post dual-chamber pacemaker placement on 11/28/[address] Pandey f/u cardio in 1 week upon DC. (3) CAD (coronary artery disease), [place] coronary artery: Plan: History of CABG x3 No acute cardiac symptoms except bradycardia arrhythmia secondary to 2 is to 1 AV block No acute cardiac symptoms (4) S/P CABG x 3: (5) Type 2 diabetes mellitus: Plan: SSI Blood sugar seems to be controlled (6) HTN (hypertension): Plan: Blood pressure is controlled and will continue current medication except beta- stefania (7) Dyslipidemia: Plan: Continue statin DVT prophylaxis As per Ortho CODE STATUS Full Medically stable, likely will need rehab/snf. Admission and Anticipated Discharge Date Admission Date: November 26, 2022 Subjective Patient seen and examined at bedside as a follow-up of neurogenic claudication due to lumbar spinal stenosis status post L5-S1 decompression and fusion on 11/26/2022 and secondary AV block status post dual-chamber pacemaker placement on 11/28/2022. Patient was sitting up in chair, on room air, NAD, family by bedside, reports pain under control, reports low back pain and radicular RLE pain improved, reports eating okay and moving bowels okay, denies any pain or headache or dizziness or sore throat or cough or other review of symptoms. Working well w/ pt/ot. awaiting placement. still problems with moving up and down steps per pt. Physical Exam Physical Exam: GENERAL: Alert and oriented x3. NAD, on RA. HEENT: No pallor, no icterus. Pupils equal, round and reactive to light. Oral mucosa moist. NECK: No JVD, no neck masses. HEART: S1 and S2 heard. Regular rate and rhythm. No murmur, no gallop. RESPIRATORY SYSTEM: Normal AP diameter. No accessory muscle use. No wheezing, no crackles. ABDOMEN: Soft, bowel sounds present, nontender, no distention. CENTRAL NERVOUS SYSTEM: No facial droop. Speech is clear. Obeys simple commands. Moves extremities. EXTREMITIES: No edema, no erythema seen. Left chest with clean dressing over the site of pacemaker placement. Low back with clean dressing without soakage. Results & Data Results & Data ([facility]) Vital Signs (Past 12 Hours) Vital Signs Temp Pulse Pulse Resp BP Pulse Ox O2 Del Method 12/02/22 11:00 36.9 C 64 18 120/57 L 93 Room Air 12/02/22 07:00 36.8 C 76 18 150/86 H 93 Room Air 12/02/22 07:00 77 12/02/22 02:45 36.9 C 69 18 128/78 96 Room Air
--- NOTE | 2022-12-05 08:15 | Operative Report (OR) ---
DATE OF PROCEDURE: 11/28/2022. PREOPERATIVE DIAGNOSIS: 2:1 AV block. POSTOPERATIVE DIAGNOSIS: 2:1 AV block. PROCEDURE: Dual-chamber rate responsive permanent pacemaker under fluoroscopic guidance along with peripheral venogram. SURGEON: Veronica Pandey DO WASHING TUB OPERATOR: None. ANESTHESIA: Monitored conscious sedation administered under my supervision by Nitza [place]. Start time 8:04, end time 9:12. Total of 4 mg of Versed and 100 mcg of fentanyl. INTRAVENOUS FLUIDS: 115 mL. ANTIBIOTICS: 2 grams of Ancef. CONTRAST: 10 mL BLOOD LOSS: 30 mL URINE OUTPUT: None. SPECIMENS: None. FINDINGS: See below. DRAINS: None. INDICATIONS: This is a 77-year-old gentleman who has a past medical history for coronary artery disease, history of a CABG x3 with a GARBER to LAD, SVG to OM and posterior left descending artery, hyperlipidemia, mild aortic stenosis, hypertension, diabetes, BPH, gastroesophageal reflux disease. He was admitted to [facility] after having a back surgery where he remained in 2:1 AV block. Monitored for some time and still had intermittent block, so he was recommended a pacemaker prior to discharge. CONSENT: Consent was obtained prior to the patient going into electrophysiology lab. The patient was informed of the risks, benefits, and alternatives to the procedure. Risks include, but not limited to, sudden cardiac , cardiac arrhythmia, cerebrovascular accident, myocardial infarction, injury to the blood vessels, chamber of the heart and lung, bleeding and infection. The patient understood these risks and agreed to the procedure as planned. Informed consent was obtained. DESCRIPTION OF PROCEDURE: The patient was brought into the electrophysiology lab in a fasting state. He was connected to continuous cardiac monitoring. A time-out was performed to ensure patient identity and procedure correctly. He was prepped and draped over the left infraclavicular space in normal surgical standard fashion. Monitored conscious sedation was given throughout the procedure for patient's comfort level. [place] precautions were maintained throughout the procedure. A 10 mL of 1% lidocaine-bupivacaine mixture were given in the left deltopectoral groove. An incision was made in the left deltopectoral groove. Blunt dissection was performed down to the pectoralis muscle. Then, a pacemaker pocket was created using blunt dissection over the pectoralis muscle within the pectoralis fascia. Then, a peripheral venogram was performed to identify the axillary vein. Venous axillary access was obtained through a needlestick without any problem. The guidewire was inserted without any resistance. Then, a 7-Salvadorean sheath was inserted over the guidewire without any resistance. Dilator was removed and a second guidewire was inserted through the sheath to allow for retained venous access. Sheath was removed, flushed, reinserted over the dilator, then reinserted over the guidewires. The guidewire and dilator were removed and the right atrial lead was temporarily placed in the right ventricular apex under fluoroscopic guidance to have backup pacing while positioning the right bundle lead. Then, a second 7-Salvadorean sheath was inserted over the retained guidewire, the guidewire and dilator removed. Then, the His C315 sheath was advanced over a Glidewire into the right ventricle. The Glidewire and dilator were removed and the left bundle pacing lead was advanced through the His C315 sheath and intracardiac electrogram His bundle recordings was attempted and never saw a complete clear His, but I had an idea of where one was and based on my A:V ratio, I then moved the camera to MERCADO 30 and marked where the His was on my fluoroscopy screen, came down about 2 cm from this in a line that would extend out to the apex with our position in the left bundle lead. We came on pacing and moved around until I found a nice W formed paced pattern in V1. I then moved the camera to SINHALA 30 and started giving a series of clockwise turns to screw the lead into the septum pausing every once in a while to see how the lead was advancing. Of note, I did have to reposition it just because it was not advancing that well and I did not like the pacing complex, but ultimately I found a nice spot. I gave contrast through the sheath to see how I was well into the septum, I had a beautiful R prime on the EKG complex. I then left the 7-Salvadorean sheath in while I repositioned the right atrial lead to the right atrial appendage. The right atrial lead that was temporarily placed in the right ventricular apex, screw was retracted and the lead was positioned into right atrial appendage under fluoroscopic guidance using the blue J stylet. There was adequate pacing and sensing thresholds and no diaphragmatic stimulation with pacing. The 7- Salvadorean sheath was peeled away and the lead was fixated to pectoralis muscle using 0 silk suture. A 7-Salvadorean sheath around the left bundle lead was then peeled away and the lead was fixated to pectoralis muscle using 0 silk suture. The pocket was then flushed with copious amounts of vancomycin and saline wash and inspected for hemostasis. The pulse generator was then placed in the antibiotic pouch followed then by being placed in the pocket the pulse generator was then attached to the leads making sure the pins were in appropriate position, passed set screws, and set screws were all tightened. Then, the pulse generator was placed in the antibiotic pouch followed then by being placed in the pocket, making sure the leads were lying flat beneath the device. The incision was closed in a 3-layer fashion using 2-0 Vicryl interrupted suture, followed by 3-0 Vicryl interrupted suture, followed by a 4-0 Monocryl running stitch and Dermabond was applied followed by Telfa and Tegaderm dressing. EQUIPMENT: 1. The pulse generator is a baseclick Fatoumata XT DR YUMIKO SurePatrickan [id number], serial number [id number]. 2. TYRX pouch, reference [id number], lot number [id number]. 3. Right atrial lead, Medtronic 5076-52 cm, serial number [id number]. 4. Left bundle lead, Medtronic 3830-69 cm, serial number [id number]. INTRAOPERATIVE FINDINGS: 1. Right atrial lead, P waves 1.4 millivolts, impedance 475 ohms, threshold 0.5 volts at 0.5 milliseconds. 2. Left bundle lead, R waves 7.1 millivolts, impedance 1050 ohms, threshold 1.3 volts at 0.5 milliseconds. FINAL MEASUREMENTS THROUGH THE DEVICE: 1. Right atrial lead, P waves 1 millivolt, impedance 399 ohms, threshold 0.75 volts at 0.4 milliseconds. 2. Left bundle lead, R waves 7.4 millivolts, impedance 874 ohms, threshold 0.5 volts at 0.4 milliseconds. FINAL PARAMETERS: DDDR 60/130. Right atrial amplitude 3.5 volts, pulse width 0.4 milliseconds, sensitivity 0.3 millivolts. Left bundle lead amplitude 3.5 volts, pulse width 0.4 milliseconds, sensitivity 0.9 millivolts. IMPRESSION: Successful dual chamber rate responsive permanent pacemaker under fluoroscopic guidance along with peripheral venogram secondary to high-degree AV block. PLAN: Transfer patient back to telemetry unit. He cannot lift the left elbow or left shoulder for 1 month. He cannot lift more than 10 pounds with left arm for 2 weeks. He is to keep the dressing on and dry until his wound check next week. Any change in his medications, we will defer to general cardiology. Job ID: [id number] [facility] HOSPITALMelody
--- NOTE | 2022-12-09 12:45 | Discharge Summary ---
Date of Service December 09, 2022 Admission HPI Per Admitting Provider This is a 77-year-old male who presents with chronic persistent back and leg pain. Failed extensive course of nonoperative care is here for surgical intervention. Principal Diagnosis Lumbar spinal stenosis with radiculopathy Discharge Data Allergies Allergy/AdvReac Type Severity Reaction Status Date / Time No Known Allergies Allergy U Verified 11/03/22 15:04 Consultations 11/26/22 18:22 Consult Cardiology Routine Consult Hospitalist Routine Procedures Performed Operation Date: 11/26/22 07:00 Actual Procedures p L5-S1 Decompression and Fusion; Interbody Cage L5-S1, Spinal Cord Monitoring - Uche Porras DO Operation Date: 11/28/22 08:00 Actual Procedures s Venogram, Unilateral - Veronica Pandey DO p Pacer with A/V Leads (Dual) - Veronica Pandey DO Ordered Studies 11/26/22 [place] lumbar spine 2-3V Routine 11/28/22 06:45 EP Lab Images for PACS ONCE Hospital Course (1) Neurogenic claudication due to lumbar spinal stenosis: Patient with lumbar decompression fusion tolerated this well was taken to PACU postoperatively. He did continue to struggle with bradycardia and heart block and underwent pacer placement the following day. He tolerated this well then he progressed appropriately throughout his hospital stay ultimately being discharged to rehab. Discharge orders instructions from the chart for further review. Total Time Total Time Spent Total Time Spent (In Minutes): 20 minutes Discharge Plan Discharge Items Patient Disposition: Transfer Inpatient Rehab Fac Reason For Visit: Spinal Stenosis, Lumbar Region with Neurogenic Cla Discharge Diagnosis: Lumbar spinal stenosis with neurogenic claudication Activity: As commented below Activity Comment: do not raise the left elbow over the left shoulder for 1 month Lifting: No more than 10 pounds Lifting Comment: do not lift more than 10 pounds with the left arm for 2 weeks Bathing: Keep incision dry Bathing Comment: keep dressing on & dry until wound check next week Non-emergency contact: Primary Care Provider Call non-emergency contact if: you have any medication questions Follow-up/Referrals: Edwin Alfonso MD [Primary Care Provider] - Diet: Regular Addtl Attending Provider Instructions: device and wound check at [facility] next week Pending Studies at Discharge: No Stand-Alone Forms: My [facility] Skilled Items Patient informed of condition?: Yes DNR: No Discharge Level of Care: Acute rehab Communicable Disease: No Discharge Prognosis: Improving Lines: None Urinary Catheter: No Medications and DC Order Prescriptions: New tramadol 50 mg tablet 50 mg PO Q6H PRN (Reason: pain, moderate) Qty: 30 0RF oxycodone 5 mg tablet 5 mg PO Q6H PRN (Reason: pain, severe) Qty: 30 0RF Continued atorvastatin [Lipitor] 40 mg Tablet 40 mg PO HS Humulin 70/30 U-100 Insulin 100 unit/mL (70-30) Suspension 1 sliding scale dose SUBCUT USEASDIRECTD Label Comments: USUALLY TAKES 50 UNITS PER DAY Rx Instructions: PT USES SLIDING SCALE RANGES FROM 20-30 UNITS FOR MEALS losartan 25 mg tablet 25 mg PO QAM nitroglycerin 0.4 mg tablet, sublingual 0.4 mg sublingual UD omeprazole 20 mg capsule,delayed release(DR/EC) 20 mg PO DAILY PRN (Reason: Acid Reflux) metformin 500 mg tablet extended release 24 hr 500 mg PO BID metoprolol tartrate 25 mg tablet 25 mg PO BID multivitamin Tablet 1 tab PO QAM finasteride 5 mg Tablet 5 mg PO QAM Discharge Orders: Discharge Order (Routine); Ordered 12/01/22 Ordered By: Uche Porras Admission Data Admit Date/Time: 11/26/22 16:15 Attending Provider: Uche Porras Admit Provider: Uche Porras Primary Care Provider: Edwin Alfonso Other Providers: Papo Melissa ; Syeda Wagner ; Jacobo Gardiner ; [facility] ; [place] Other Interventions: Discharge Summary Assessment (RN) Last Done: 12/02/22 16:23
--- NOTE | 2022-12-10 08:36 | Discharge Summary ---
Date of Service December 10, 2022 Admission HPI Per Admitting Provider This is a 77-year-old male who presents with chronic persistent back and leg pain. Failed extensive course of nonoperative care is here for surgical intervention. Admission Exam (Per Admitting) Constitutional WD/WN, vitals as above Eyes PERRL, conjunctivae normal, anicteric sclerae ENMT external ear and nose normal, oropharynx normal Neck normal visual inspection Respiratory normal respiratory effort Cardiovascular Extremities: normal capillary refill Gastrointestinal (Abdomen) Inspection/Auscultation: abdomen normal to inspection Musculoskeletal Spine: + pain with thoraco-lumbar ROM Skin no rashes, warm and dry Neurologic normal touch/pain/proprioception and moves all extremities Psychiatric A+Ox3, euthymic affect Eye Contact: good eye contact Discharge Data Consultations 11/26/22 18:22 Consult Cardiology Routine Consult Hospitalist Routine Procedures Performed Operation Date: 11/26/22 07:00 Actual Procedures p L5-S1 Decompression and Fusion; Interbody Cage L5-S1, Spinal Cord Monitoring - Uche Porras DO Operation Date: 11/28/22 08:00 Actual Procedures s Venogram, Unilateral - Veronica Pandey DO p Pacer with A/V Leads (Dual) - Veronica Pandey DO Hospital Course (1) Neurogenic claudication due to lumbar spinal stenosis: Patient underwent lumbar decompression instrumented fusion by Dr. Porras on November 26. He had bradycardia and a second-degree A-V heart block preoperatively as well is postoperatively. [facility] cardiology was consulted. He was subsequently taken for a pacemaker implant to the operative suite on November 28. After that he started physical therapy. Lab values were stable. Symptoms were improved. He was discharged on December 02. Discharge Instructions ACTIVITY RECOMMENDATIONS: SELF CARE INSTRUCTIONS AFTER THORACIC/LUMBAR FUSIONS 1. You may walk to your tolerance. It is good exercise for your legs and back. Expect some back and intermittent leg aches and pains. 2. You may perform "counter-top" level activities (make a sandwich, greg with a project, etc.). 3. No bending or lifting of more than 10 pounds or back twisting of any nature (roll like a log when turning in bed). 4. You may ride in a car for 20-30 minutes at a time. No driving until after your first visit with your doctor. 5. Frequent changes of position and restricting sitting to 30 minutes at a time will help limit the amount of back spasms and stiffness you may experience. 6. You may discontinue the use of ambulatory aids (cane, crutches, etc.) once your strength and confidence allow. 7. You may civil engineer helper the shower and let water strike your incision when you arrive home at least once daily. Do not take a tub bath, sit in a hot tub or go into a swimming pool until after your first recheck in the office. SPECIAL CARE INSTRUCTIONS: VERY IMPORTANT TO READ AND REVIEW A. Your surgical incision has been closed with a cosmetic suture under the skin that will dissolve in about 6 weeks. In 14 days, you can use a pair of clean scissors and cut the suture that is left outside of the skin at the ends of your incision. 1. The small skin tapes can be removed 7 days after surgery if they have not fallen off by that point. 2. You may keep the wound open to air as much as possible to promote healing after post-op day number 5 unless told otherwise by your doctor. 3. If you think the wound looks like it is becoming infected (redness or worsening drainage) and/or you are experiencing fever, chill or worsening back pain and muscle spasms, contact the office so that we may evaluate you as soon as possible. B. Complications are uncommon, but please contact us if you have any signs or symptoms of: 1. wound infection (fever higher than 102.5 degrees F, redness, separation of wound, drainage, or increasing pain from the incision) 2. blood clots in legs (pain, swelling, redness and warmth in legs) 3. urinary tract infection (fever higher than 102.5 degrees F, burning upon urination or increased frequency of urination) 4. nerve problems (inability to walk on your toes or heels, numbness, loss of bowel or bladder control) 5. any other symptoms that concern you C. Please call the office at if you have any concerns or questions about your operation or recovery. D. No smoking! Smoking drastically decreases the chance of a solid fusion. E. Do not take any anti-inflammatory medications (Indocin, Advil, Motrin, Aspirin, Naprosyn, etc.) as these may inhibit the chance of a solid fusion. Tylenol is okay to take for pain. MANAGING PAIN AFTER SPINAL SURGERY 1. Narcotic medication is intended for short-term use and will be provided for surgical pain. Surgical pain usually lasts for a period of 4-6 weeks. Narcotic medication includes Percocet, Vicodin, Darvocet, Tylenol #3 or Lortab. 2. Longer-term pain is more appropriately treated with non-narcotic medication such as Tylenol ES. 3. Muscle spasm is not appropriately treated with narcotics. Muscle relaxers such as Soma, Flexeril or Skelaxin can be used along with Tylenol ES. 4. Remember that we all live with some "aches and pains". This is not unusual or uncommon after an injury or as we get older. a. Back pain is expected and may include muscle spasms for 4 to 6 weeks after surgery. The pain should gradually improve. If the pain worsens for no apparent reason, please contact the office. b. Intermittent leg pain may also be experienced and should not be concerned about unless it worsens for no apparent reason. If so, please contact the office. 5. We will provide appropriate medication within the normal guidelines of their prescribed use. We will also be very cautious and aware of potential abuse and extended duration of patients' medication needs. a. Pain medications are for your comfort and to assist with sleep and rest so that the tissue can heal. They are not provided in order to return to normal activity and should not be used through the day. To do so or worsening pain at night can result from ongoing tissue damage and development of tolerance to the prescribed medicine. 6. Please allow 2-3 days to process refills. Prescriptions will not be mailed but must be picked up at the office. FOLLOW UP VISIT: Keep your scheduled follow-up appointment. Any questions, please call the office at .
== END 2022-12-02 17:49 | DRG 454 ==
LOC: ASU 12:01 → 2E 16:15